=== PATIENT | male | born 1940 | race Caucasian/White ===

== ENCOUNTER 2017-04-15 15:18 | Outpatient (CLI) | payer MEDICARE, OTHER ==
--- OUTSIDE RECORDS SUMMARY | 2017-04-15 15:23 | XMS | Clinical Summary ---
:1940 Author Organization [facility] Address [address] [place] [address] Phone Care Team Providers Name Role Phone Unknown, Phys Primary Care Provider Unavailable Allergies No Known Allergies Current Medications Prescription Sig. Disp. Refills Start Date End Date Status azaTHIOprine (IMURAN) 50 mg Take 50 mg by Active tablet mouth daily. 2 tabs aspirin (ECOTRIN) 81 MG Take 81 mg by Active enteric coated tablet mouth daily. hydroCHLOROthiazide Take 25 mg by Active (HYDRODIURIL) 25 MG tablet mouth daily. balsalazide (COLAZAL) 750 mg Take 2,250 mg by Active capsule mouth 2 (two) times a day. 3 capsules pregabalin (LYRICA) 150 MG Take 150 mg by Active capsule mouth 2 (two) times a day. esomeprazole (NexIUM) 20 MG Take 20 mg by Active capsule mouth daily before breakfast. atorvastatin (LIPITOR) 10 MG Take 10 mg by Active tablet mouth daily. amLODIPine (NORVASC) 10 mg Take 10 mg by Active tablet mouth daily. everolimus (AFINITOR) 10 mg Take 7.5 mg by Active tablet mouth daily. sildenafil (VIAGRA) 50 MG Take 100 mg by Active tablet mouth daily as needed for erectile dysfunction. GLUCOSAMINE/D3/BOSWELLIA Take 1 tablet by Active VICKIE (OSTEO BI-FLEX, mouth daily. 5-LOXIN, ORAL) multivitamins & Take by mouth Active minerals-ferrous gluconate 9 daily. mg iron/15 mL liquid Active Problems Not on file Social History Tobacco Use Types Packs/Day Years Used Date Never Smoker Alcohol Use Drinks/Week oz/Week Comments Yes occassionally Sex Assigned at Date Recorded Not on file Last Filed Vital Signs Vital Sign Reading Time Taken Blood Pressure 123/75 10/23/2016 1:07 PM CDT Pulse 85 10/23/2016 1:07 PM CDT Temperature 36.3 C (97.4 F) 10/23/2016 12:51 PM CDT Respiratory Rate 18 10/23/2016 1:07 PM CDT Oxygen Saturation 96% 10/23/2016 1:07 PM CDT Inhaled Oxygen Concentration - - Weight 88.5 kg (195 lb 2 oz) 10/23/2016 10:40 AM CDT Height 182.9 cm (6') 10/23/2016 10:40 AM CDT Body Mass Index 26.46 10/23/2016 10:40 AM CDT Plan of Treatment Not on file Implants Implanted Type Area Acid Pump Operator Device Expiration Model / Identifier Date Serial / Lot Sleeve Rnd Styl 70 Sceleral Bcklng Najma Strl - [id number] Surgical Right: LABTICIAN 07/19/2021 [id number] / Implanted:Qty: 1 on 10/23/2016 by Elier Shaikh MD Implants; Eye / Expanders; [id number] Extenders; Surgical Wires Strip Opthalmic Imp Styl 42 W/ Wide [employer] Najma 4mm - [id number] Surgical N/ A: N/A LABTICIAN 09/16/2021 [id number] / Implanted:Qty: 1 on 10/23/2016 by Elier Shaikh MD Implants; / Expanders; Extenders; Surgical Wires Results Not on filefrom Last 3 Months Insurance Payer Benefit Plan / Group Subscriber ID Type Phone Address MEDICARE MEDICARE PART A AND B [id number] Medicare [place], [place] FOR LIFE [id number] Home: [id number] [address] [phone] [address]
--- NOTE | 2017-04-16 09:09 | MRI ---
MRI LEFT ANKLE WITHOUT CONTRAST MRI LEFT FOOT WITHOUT CONTRAST: Date: 04/15/17 TECHNIQUE: Multiplanar, multisequence MRI of the left foot and ankle performed without contrast. FINDINGS: Bones: On the coronal T2 fat sat sequences, there is loss of normal fat saturation of the foot due to poor shimming. There is extensive edema within the talar head and neck with some erosive change of the ar ticular surface. There is abnormal edema of the spring ligament. Lisfranc interval is maintained. There is some patchy marrow edema of the second metatarsal head, third metatarsal head, and proximal phalanx base, as well as fourth metatarsal head and proximal phalanx base and fifth metatarsal head . This is felt to be real and not due to poor fat saturation. There is red marrow edema within the c alcaneus. Ligaments: AITFL is bifurcated. PITFL is intact. ATFL is intact. CFL is intact. Superficial and deep deltoid have increased signal. There is some marrow edema at the insertion of t he talar neck of the anterior deep deltoid ligament. Muscles: There is extensive muscular edema with what appears to be possibly early fat atrophy of the extensor and flexor muscle belly above the ankle. There is also extensive edema within the intrinsic muscles of the foot. There is a tear of the dorsal capsule with elongation of the lateral limb of the inferior extensor r etinaculum, which is prominent and thickened, and may be scarred. There is extensive superficial and deep soft tissue edema. There is a small interstitial tear of the medial most margin of the distal most Achilles tendon. IMPRESSION: 1. Overall, findings are suggestive of complex regional pain syndrome. There are areas of patchy ma rrow edema in the hindfoot and forefoot with extensive superficial and soft tissue edema, recent inj ury to the ankle joint capsule, evidence of incomplete avulsive edema of the anterior deep deltoid l igament from the talar neck. Follow-up MRI with and without contrast in 3-6 months is recommended. 2. Extensive edema within the anterior and posterior musculature of the ankle with early atrophy, a lso goes along with complex regional pain syndrome. Recommend correlation with symptomatology for de nervation and neuropathic changes. POS: [facility]
== END 2017-04-15 15:19 | disposition home or self-care (01) ==
LOC: SCSMRI 15:18
PROVIDERS: ATTEND Internal Medicine
DX: M25.572 Pain in left ankle and joints of left foot (principal); R60.0 Localized edema

== ENCOUNTER 2017-04-29 14:09 | Outpatient (CLI) | payer MEDICARE, OTHER ==
--- NOTE | 2017-04-29 16:23 | MRI ---
MRI LUMBAR SPINE NONCONTRAST: DATE: 04-29-17 HISTORY: 76-year-old male with G90.522 complex regional pain syndrome of left lower limb. COMPARISON: No prior MRI or dedicated CTs of the lumbar spine. FINDINGS: Review of the CT of the chest, abdomen, and pelvis of 05-12-13 demonstrates five lumbar type vertebr ae (T12 ribs are bilaterally hypoplastic). The vertebral body heights are maintained. There is mild right-lateral curvature of the lumbar spine, with apex of curvature at approximately L2-3. Because o f this curvature, there are asymmetrically severe left sided degenerative disc changes at L2-3 and L 3-4, with Modic type II endplate changes, endplate irregularities including Schmorl's nodes, severe left sided disc space narrowing, and asymmetrically larger broad based left lateral and far lateral disc/osteophytic complexes chronically encroaching upon the medial aspect of the left psoas muscle a t those two levels. There are similar asymmetrically severe contralateral right sided degenerative d isc changes at L4-5, due to the concavity of the countercurvature. The spinal canal and thecal sac a re generous in caliber throughout all levels. The conus medullaris terminates at T12-L1. As a result of the right sided concavity, there is mild to moderate right neural foraminal stenosis at L4-5. Ot herwise, there is no significant neural foraminal stenosis at any other level. No major spondylolist hesis. There are bilateral degenerative facet changes which are moderate at L3-4, mild to moderate a t L4-5 bilaterally, and asymmetrically severe on the right at L5-S1, and mild on the left at L5-S1. 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 The right kidney is absent. No major pathology of the perivertebral spaces. Left renal upper pole 1. 5 cm cyst has increased in size compared to 05-12-13. No left hydronephrosis. No abdominal aortic an eurysm. Mild to moderate atrophy of posterior paraspinal musculature. IMPRESSION: 1. Lumbar spondylosis, associated with lumbar curvature, asymmetrical multilevel degenerative disc d isease of varying degrees, and multilevel facet osteoarthrosis of varying degrees. 2. No central spinal canal stenosis, and no high grade neural foraminal stenosis at any level. 3. Absence of right kidney. JN R POS: [facility]
== END 2017-04-29 14:10 | disposition home or self-care (01) ==
LOC: SCSMRI 14:09
PROVIDERS: ATTEND Anesthesiology Pain Medicine
DX: G90.522 Complex regional pain syndrome I of left lower limb (principal); M47.816 Spondylosis without myelopathy or radiculopathy, lumbar region; M51.36 Other intervertebral disc degeneration, lumbar region; Z90.5 Acquired absence of kidney
CPT/HCPCS: 72148

== ENCOUNTER 2017-06-10 14:04 | Outpatient (CLI) | payer MEDICARE, OTHER ==
--- NOTE | 2017-06-10 14:51 | ULT ---
LEFT LOWER EXTREMITY VENOUS DUPLEX ULTRASOUND INCLUDING COLOR AND SPECTRAL DOPPLER IMAGING: History: 76-year-old male with left leg pain. FINDINGS: Exam performed from groin to ankle including visualized greater saphenous, common femoral, superficia l femoral, profunda femoral, popliteal, trifurcation and posterior tibial vein regions. There is phas ic flow at all levels with normal compressibility and normal augmentation. No intraluminal thrombus. IMPRESSION: No evidence of deep venous thrombosis. POS: [facility]
== END 2017-06-10 14:05 | disposition home or self-care (01) ==
LOC: SCSULT 14:04
PROVIDERS: ATTEND Internal Medicine
DX: M79.672 Pain in left foot (principal)

== ENCOUNTER 2017-08-06 08:19 | Outpatient (CLI) | payer MEDICARE, OTHER ==
[2017-08-06] MEDS ORDERED: Gadobenate Dimeglumine 529 MG/1 ML (20ML VIAL) ONE (09:00)
--- NOTE | 2017-08-06 09:50 | CT ---
CT CHEST NONCONTRAST CT ABDOMEN AND PELVIS NONCONTRAST: HISTORY: Renal cell carcinoma with metastatic disease. Restaging. COMPARISON: 04/01/17. FINDINGS: The 0.6 cm nodule at the anterior medial aspect of the right upper lobe is similar in appearance to t he prior study. The lobular nodule at the right posterior lung base is now 3.9 x 1.9 cm greatest felipa meters (previously 3.6 x 1.4 cm). The nodule abutting the pleura at the superior segment left lower lobe posteriorly is 0.9 cm (previously 0.8 cm). Degenerative changes of the lumbar spine and lower t horacic hemangioma are stable. Lack of contrast limits evaluation of the soft tissues. The enlarged precarinal lymph node is now 2. 1 cm greatest diameter on the axial images (previously 0.8 cm). The enlarged right anterior hilar ly mph node is now 3.1 x 2.6 cm (previously 2.3 cm). Subcarinal adenopathy is now 3.2 cm (previously 2. 8 cm). Hyperdense stones are apparent within the gallbladder lumen. The right kidney is surgically absent. There is calcification in the arterial structures. Diverticula arise from the colon without adjacen t inflammation. IMPRESSION: 1. Interval enlargement of the mediastinal adenopathy and slight enlargement of some of the parenchy mal lung nodules, as detailed above. 2. Cholelithiasis. 3. Status post right nephrectomy. 4. Atherosclerosis. 5. Diverticulosis. POS: [facility]
--- NOTE | 2017-08-06 18:19 | MRI ---
MRI OF LUMBAR SPINE WITH AND WITHOUT IV CONTRAST 08/06/17 HISTORY: Renal cell carcinoma. Patient had nerve block on lumbar spine. Patient is having left foot numbness a nd swelling for six months. No known injury. COMPARISON: MRI lumbar spine on 04/29/17. FINDINGS: Again noted is the circumscribed round increased T2 and corresponding decreased T1 weighted signal in tensity lesions superior pole left kidney likely related to left renal cyst. There is absence of the right kidney likely related to right nephrectomy. Retroperitoneal structures are otherwise unchanged from prior exam. The conus medullaris is normal in appearance and terminates at the T12-L1 level. Multilevel degenerative changes are again seen, again asymmetrically greater on the left due to scoli otic curvature. Multilevel end plate degenerative changes are seen with loss of intervertebral disc h eight at the L2-3, L3-4, and L4-5 levels. L1-2 level: Central spinal canal and neural foraminal are patent. L2-3 level: There is a broad based disc osteophyte complex with a left paracentral and foraminal disc protrusion also noted on the prior exam. There is mild left sided neural foraminal narrowing at this level, but the right neural foramen is patent. The findings have not progressed from the prior exam. L3-4 level: There is a mild broad based disc osteophyte complex centrally greater on the left probabl y related to the scoliotic curvature. This results in mild left sided neural foraminal narrowing, but the degree of the narrowing is less than at the L2-3 level. The right neural foramen at this level i s patent. There is minimal effacement of the thecal sac anteriorly. L4-5 level: There is a broad based disc osteophyte complex with prominent facet hypertrophic changes. These findings result in mild to moderate right neural foraminal narrowing, but the left neural fora men is patent. There is minimal effacement of the anterior aspect of the thecal sac. L5-S1 level: There is no significant disc bulge or disc herniation. Central spinal canal and neural f oramina are patent at this level. The degree of degenerative changes are overall unchanged from the prior study. No abnormal areas of e nhancement are seen after the administration of intravenous contrast. IMPRESSION: 1. Stable degenerative changes of the lumbar spine. 2. Absence of the right kidney related to right nephrectomy. Small left renal cyst is again seen . 3. No abnormal areas of enhancement are seen after the administration of intravenous contrast. 4. Right convex scoliosis lumbar spine. POS: [facility]
== END 2017-08-06 08:20 | disposition home or self-care (01) ==
LOC: SCSCT 08:19
PROVIDERS: ATTEND Internal Medicine Hematology & Oncology
DX: C78.39 Secondary malignant neoplasm of other respiratory organs (principal); C78.01 Secondary malignant neoplasm of right lung; E53.8 Deficiency of other specified B group vitamins; K80.20 Calculus of gallbladder without cholecystitis without obstruction; I70.90 Unspecified atherosclerosis; K57.90 Diverticulosis of intestine, part unspecified, without perforation or abscess without bleeding; R59.0 Localized enlarged lymph nodes; M47.896 Other spondylosis, lumbar region; N28.1 Cyst of kidney, acquired; M41.9 Scoliosis, unspecified; Z85.528 Personal history of other malignant neoplasm of kidney; Z90.5 Acquired absence of kidney
CPT/HCPCS: 71250; 72158; 74177; A9579

== ENCOUNTER 2017-11-12 09:20 | Outpatient (CLI) | payer MEDICARE, OTHER ==
--- NOTE | 2017-11-12 13:05 | CT ---
CT CHEST NONCONTRAST CT ABDOMEN NONCONTRAST: History Renal cancer. Restaging. COMPARISON: 08/06/17. FINDINGS: Lungs remain hyperinflated with scarring to the right posterior lung base. The noncalcified nodule a t the anterior medial aspect of the right upper lobe is 0.5 cm greatest diameter (previously 0.6 cm) Mass at the right lower lobe is 3.4 x 1.3 cm (previously 3.9 x 1.9 cm). The subpleural nodule at th e left lower lobe is 0.8 cm (previously 0.9 cm). Lack of contrast limits evaluation of the soft tissues. There is calcification within the arterial s tructures. Precarinal lymph node is 1.9 cm (previously 2.1 cm). Right hilar lymph node is 2.6 x 2.4 cm (previously 3.1 x 2.6 cm). Subcarinal lymph node is 2.9 cm depth on the axial image (previously 3.2 cm). Hyperdense stones are apparent within the gallbladder lumen. Multiple liver cysts are again demonstr ated. Involving the posterior aspect of the posterior segment right liver lobe inferiorly is a geogr aphic somewhat irregular-shaped area of low density involving segments 6 and 7. Degenerative changes lumbar spine. The right kidney is surgically absent. No evidence of bowel obst ruction. The pelvis was not imaged. IMPRESSION: 1. Slight interval decrease in size of multiple bilateral pulmonary nodules and mediastinal adenopat hy, as detailed above. 2. New area of geographic low density involving the posterior segment right liver lobe. Distributio n suggests that a venous compromise is the cause. Further evaluation to look for a possible lesion r esulting in the altered venous drainage is required. Please consider dedicated CT liver 3-phase with and without IV contrast for better characterization. 3. Cholelithiasis. Other chronic-type findings are stable. POS: [facility]
== END 2017-11-12 09:21 | disposition home or self-care (01) ==
LOC: SCSCT 09:20
PROVIDERS: ATTEND Internal Medicine Hematology & Oncology
DX: C64.9 Malignant neoplasm of unspecified kidney, except renal pelvis (principal); C34.90 Malignant neoplasm of unspecified part of unspecified bronchus or lung; R91.8 Other nonspecific abnormal finding of lung field; R59.0 Localized enlarged lymph nodes; K80.20 Calculus of gallbladder without cholecystitis without obstruction
CPT/HCPCS: 71250; 74150; 74177

== ENCOUNTER 2018-02-24 09:17 | Outpatient (CLI) | payer MEDICARE, OTHER ==
--- NOTE | 2018-02-24 11:44 | CT ---
CT THORAX NONCONTRAST CT ABDOMEN NONCONTRAST: Date: 02/24/18 HISTORY: 77-year-old male with history of right renal cell carcinoma C64.9 and lung metastasis C78.39. TECHNIQUE: IV contrast not administered. Oral contrast administered. COMPARISON: 11/12/17. FINDINGS: There is an approximately 3.5 x 1.5 x 2 cm right lower lobe pulmonary mass which is elongated in the AP dimension, contiguous with right lower hilum and extending posteriorly. It has not significantly c hanged since 11/12/17. The previously approximately 0.5 x 0.3 x 0.6 cm noncalcified pulmonary nodule at the medial aspect of the anterior segment of right upper lobe currently measures 0.5 x 0.6 x 0.8 cm. It appears minimally larger than before (coronal image 14 of 64, series 602; axial image 26 of 56, series 6). This appare nt difference may or may not be real. The 0.8 x 0.7 x 0.7 cm pulmonary nodule in the left lower lobe close to the posterior pleural surface has not changed (coronal image 53 of 64, series 602; axial image 32 of 56, series 6). Posterior to t hat, there is mild pleural thickening. No new pulmonary nodule is identified. The subcarinal lymphadenopathy measuring approximately 2.9 cm anteroposterior is unchanged. The right anterior hilar lymphadenopathy measuring approximately 2.4 x 2.6 cm, has not significantly changed. The approximately 1.9 cm right precarinal lymph node has not s ignificantly changed. Again noted are the prominent bilateral breast tissues, which have apparently s lightly increased in volume. Calcified gallstones. Several liver cysts are again noted. Previously demonstrated geographic, large area of low attenuation involving the posterior inferior as pect of right lobe of liver, remains, but is more subtle and less hypodense. Its extent has not incre ased significantly. Possibilities include focal fatty liver. No abdominal aortic aneurysm. Absent rig ht kidney with adjacent right retroperitoneal surgical clips. Stable approximately 1.8 cm hypodense l esion at left renal upper pole parenchyma posteriorly, consistent with a cyst. No hydronephrosis of l eft kidney. No left renal calculus. Multiple diverticula in descending colon and proximal sigmoid col on. Pelvis was not included. No small bowel dilation. No retroperitoneal lymphadenopathy. Normal panc reas, within the limitations of a noncontrast scan. No osteolytic lesions seen. IMPRESSION: 1. Metastatic malignant mediastinal lymphadenopathy, unchanged since 11/12/17. 2. Right lower lobe elongated pulmonary mass, unchanged since 11/12/17. 3. Anterior segment right upper lobe pulmonary nodule, uncertain whether stable or minimal growth si nce 11/12/17. Favor stable. 4. Left lower lobe pulmonary nodule, unchanged since 11/12/17. 5. Status post right nephrectomy. 6. Geographic region of mildly low attenuation in right lobe of liver. Perhaps represents focal fatt y liver. No major interval change in extent. 7. Cholelithiasis. 8. No evidence of new metastatic lesions, although lack of IV contrast decreases the sensitivity. 9. Slight worsening of bilateral gynecomastia. POS: [facility]
== END 2018-02-24 09:18 | disposition home or self-care (01) ==
LOC: SCSCT 09:17
PROVIDERS: ATTEND Internal Medicine Hematology & Oncology
DX: C64.9 Malignant neoplasm of unspecified kidney, except renal pelvis (principal); C78.00 Secondary malignant neoplasm of unspecified lung; C77.1 Secondary and unspecified malignant neoplasm of intrathoracic lymph nodes; R91.8 Other nonspecific abnormal finding of lung field; K76.0 Fatty (change of) liver, not elsewhere classified; K80.20 Calculus of gallbladder without cholecystitis without obstruction; N62 Hypertrophy of breast; Z90.5 Acquired absence of kidney
CPT/HCPCS: 71250; 74150

== ENCOUNTER 2018-03-29 05:41 | Day surgery (SDC) | payer MEDICARE, OTHER ==
[2018-03-26 09:40] VITALS: BMI 25.4
[2018-03-29] MEDS ORDERED: Bupivacaine/Epinephrine 0.25% 30 ML VIAL ONE ×2 (06:32→06:43)
[2018-03-29] MEDS ORDERED: Ophthalmic Irrigation Solution 0 ML ONE (06:32)
[2018-03-29] MEDS ORDERED: Neomycin-Polymyxin 1 ML AMP ONE ×2 (06:32→06:33)
[2018-03-29] MEDS ORDERED: CEFAZOLIN/Water 2 GM/20 ML SYRINGE ONE (06:34)
[2018-03-29] MEDS ORDERED: Triple Antibiotic Ointment 30 GM TUBE TOP SCH (06:45)
[2018-03-29] MEDS ORDERED: Fentanyl 100 MCG/2 ML VIAL ONE (07:06)
[2018-03-29] MEDS ORDERED: Promethazine HCl 25 MG/ML VIAL ONE (09:32)
--- NOTE | 2018-03-29 15:50 | OP ---
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 PROCEDURES: 1. Wide excision squamous cell carcinoma of the left cheek and latter-day (5.2 cm including adequate mar gins) (10791). 2. Full thickness skin graft, left cheek and latter-day (18 cm full-thickness skin graft left latter-day (18 cm2) (78217). 3. Wide excision skin cancer, right forearm (1.8 cm including adequate margins) (08601.02). 4. Intermediate closure, right forearm (6 cm) (08287). OPERATIVE FINDINGS: Perineural invasion noted. INDICATION FOR PROCEDURE: The patient is a 77-year-old white male with history of renal cell carcino ma referred to Plastic Surgery by JAK Padron, for evaluation of a wound on his latter-day that has been there for several months. The wound was biopsied as squamous cell carcinoma. The patient has a history of renal cell carcinoma. He is undergoing chemotherapy under Dr. Bay's care. The tumor has aggressively grown in the past 2 weeks. It is considerably larger than it was. That w ill influence the reconstructive choices today. PROCEDURE IN DETAIL: Following induction of adequate anesthesia, the patient was prepped and draped in the usual sterile fashion in the supine position. Attention was first turned to his left cheek an d latter-day lesion. This was widely excised. The cancer was large and went down to and included at rony st one branch of the temporal branch of the facial nerve. Other branches were dissected out safely. Frozen section analysis came back as margins clear. The defect was too large to close primarily. D ue to the aggressive nature of the tumor, I elected for the skin graft reconstruction. A full-thickness skin graft was harvested from the ipsilateral neck end appropriately. It was quilte d into place with interrupted and running 5-0 chromic suture. Attention was turned to the right forearm. The donor defect was closed with interrupted and running 4-0 Monocryl suture. Attention was turned to the right forearm. The lesion was widely excised including adequate margins. Frozen section analysis came back as squamous cell carcinoma with clear margins. The defect was then closed in layers using interrupted and running 4-0 Monocryl suture. All wounds were copiously irrigated and inspected for meticulous hemostasis prior to closure.
--- NOTE | 2018-03-30 17:40 | EKG ---
Test Reason : PREOP Blood Pressure : / mmHG Vent. Rate : 068 BPM Atrial Rate : 068 BPM P-R Int : 220 ms QRS Dur : 102 ms QT Int : 422 ms P-R-T Axes : 093 -31 023 degrees QTc Int : 448 ms Sinus rhythm with 1st degree A-V block Left axis deviation Cannot rule out Anterior infarct (cited on or before 11-NOV-2010) Abnormal ECG When compared with ECG of 16-JUL-2016 13:31, Criteria for Inferior infarct are no longer Present Confirmed by DR. Matteo GALVAN ([id number]) on 03/30/2018 5:40:17 PM Referred By: PREETI Confirmed By:DR. Matteo GALVAN
== END 2018-03-29 11:18 | disposition home or self-care (01) ==
LOC: SDC 05:41
PROVIDERS: ATTEND Plastic Surgery
PROC: 0HR1X73 Replacement of Face Skin with Autologous Tissue Substitute, Full Thickness, External Approach (ICD-10-PCS; principal; 2018-03-29)
PROC: 0HBDXZZ Excision of Right Lower Arm Skin, External Approach (ICD-10-PCS; 2018-03-29)
PROC: 0HB1XZZ Excision of Face Skin, External Approach (ICD-10-PCS; 2018-03-29)
DX: C44.622 Squamous cell carcinoma of skin of right upper limb, including shoulder (principal); C44.329 Squamous cell carcinoma of skin of other parts of face; Z79.82 Long term (current) use of aspirin; Z79.899 Other long term (current) drug therapy
CPT/HCPCS: 88305; 88331; 88332; 93005; 93010; 96374; J2550; J3010

== ENCOUNTER 2018-07-26 09:36 | Outpatient (CLI) | payer MEDICARE, OTHER ==
--- NOTE | 2018-07-26 13:51 | CT ---
CT OF THE THORAX WITHOUT IV CONTRAST: INDICATION: History of lung metastatic disease from renal cell carcinoma. COMPARISON: Prior CT of the chest and abdomen from [facility] dated 02/24/2018. FINDINGS: Large right lower lobe pulmonary nodule measuring 2.1 cm is relatively stable. An 8 mm pulmonary nod ule within the left lower lobe is stable. The bibasilar atelectasis is similar appearing. Pulmonary nodule within the anterior right upper lobe is stable measuring 6.5 mm. No new pulmonary nodule is identified. Malignant lymphadenopathy is relatively stable with the largest lymph node seen within t he subcarinal region measuring 2.4 cm. There is a precarinal lymph node measuring 1.5 cm. There is scattered vascular calcification involving the coronary arteries. There is bilateral male gynecomast ia. There is a cyst within the hepatic dome. There is cholelithiasis within the gallbladder. There is prominent heterogeneity of segment 6 of the right hepatic lobe that is better detailed on the sep arately dictated, concurrently performed CT of the abdomen. There is a 1.9 cm cyst in the superior p ole left kidney. No suspicious osteolytic or osteoblastic lesion identified. IMPRESSION: 1. Stable pulmonary metastatic disease. 2. Stable lymphadenopathy of the mediastinum. 3. Prominent mass-like heterogeneity of the right hepatic lobe. Please see the separately dictated CT of the abdomen and pelvis. POS: [facility]
--- NOTE | 2018-07-26 14:01 | CT ---
CT ABDOMEN WITHOUT CONTRAST: Technique: Multiple contiguous axial images were obtained through the abdomen without IV enhancement. Oral contrast was given. Indications: History of renal neoplasm. Metastasis to the lung. Comparison: CT abdomen 02-24-18 FINDINGS: There are three low density lesions in the left lobe of the liver. One measures 1.3 cm and the other along the fissure measures 2.2 cm. The other is subcentimeter. These lesions are stable from the prior exam and appear most consistent with tiny cystic lesions. Ano ther low density focus in the mid right lobe of the liver peripherally is subcentimeter and unchanged , probably tiny cysts. Nonspecific heterogeneity in the inferior right lobe of the liver is again seen. This was described p reviously as an area of low attenuation in the right lobe of the liver, possibly representing focal f atty liver. It is unchanged in appearance and does not have the appearance of metastasis. Spleen is small and unchanged. The pancreas is unremarkable. Gallbladder is mildly distended and there are at least two calcified gallstones in the neck of the ga llbladder. These were described previously. Small bowel loops unremarkable. Visualized colon unremarkable. Aorta normal caliber. Patient is post right nephrectomy. Adrenal glands appear normal. Left kidney unremarkable and unchang ed in appearance. There is a 2 cm cystic lesion from the superior left kidney which is stable. There is left perinephric stranding which is stable. No evidence of adenopathy. Tiny subcentimeter periaortic lymph nodes are stable. There are tiny subce ntimeter crural lymph nodes in the upper abdomen, stable. IMPRESSION: Abdominal CT findings are stable from the prior study. Hepatic cysts, cholelithiasis, left renal cyst s all again noted. Nonspecific area of low attenuation inferior right lobe of the liver appears uncha nged, possibly representing fatty infiltration as noted previously. POS: [facility]
== END 2018-07-26 09:37 | disposition home or self-care (01) ==
LOC: SCSCT 09:36
PROVIDERS: ATTEND Internal Medicine Hematology & Oncology
DX: C78.01 Secondary malignant neoplasm of right lung (principal); C64.9 Malignant neoplasm of unspecified kidney, except renal pelvis; K76.89 Other specified diseases of liver; K80.20 Calculus of gallbladder without cholecystitis without obstruction; N28.1 Cyst of kidney, acquired; R59.0 Localized enlarged lymph nodes
CPT/HCPCS: 71250; 74150

== ENCOUNTER 2018-10-19 09:20 | Outpatient (CLI) | payer MEDICARE, OTHER ==
--- NOTE | 2018-10-19 11:47 | CT ---
FCT of chest abdomen and pelvis with enteric contrast. IV contrast not administered. COMPARISON: 07/26/2018 CLINICAL HISTORY: Renal cancer with history of lung metastasis. FINDINGS: Redemonstration of multifocal bilateral pulmonary nodules. Dominant nodule within the right lower lobe demonstrates a spiculated morphology and is grossly stable at 2.1 cm. 9 mm posterior left lower lobe pulmonary nodule is grossly stable additional scattered pulmonary parenchymal nodules are also grossly stable. There is mild pleural-based density posteriorly and bilaterally. There is incre asing volume of confluent soft tissue in the subcarinal region indicative of progressive adenopathy. Evidence of cholelithiasis and multifocal hepatic hypodensities, similar in appearance. Prior heterog eneity at the right hepatic lobe is redemonstrated, subtle in appearance and incompletely evaluated b y noncontrast technique. Contrast opacified small bowel is nondilated. There are colonic diverticula. Mild pericardial fluid i s present. Scattered atherosclerotic vascular disease is demonstrated. No acute osseous pathology. IMPRESSION: Confluent soft tissue abnormality of the subcarinal region, slightly progressed in volume, indicating progressive conglomerate metastatic adenopathy. Grossly stable bilateral pulmonary metastatic disease with dominant nodule remaining at approximately 2.1 cm within right lower lobe. Transcribed Date/Time: 10/19/2018 12:04 PM
== END 2018-10-19 09:21 | disposition home or self-care (01) ==
LOC: SCSCT 09:20
PROVIDERS: ATTEND Internal Medicine Hematology & Oncology
DX: C64.9 Malignant neoplasm of unspecified kidney, except renal pelvis (principal); C78.01 Secondary malignant neoplasm of right lung; C78.02 Secondary malignant neoplasm of left lung; R59.0 Localized enlarged lymph nodes; R91.1 Solitary pulmonary nodule
CPT/HCPCS: 71250; 74177

== ENCOUNTER 2018-12-21 09:30 | Outpatient (CLI) | payer MEDICARE, OTHER ==
--- NOTE | 2018-12-21 11:16 | CT ---
NONCONTRAST ENHANCED CT IMAGES OF CHEST AND ABDOMEN: HISTORY: Patient with history of renal cancer, malignant neoplasm of lung. FINDINGS: There is a 1.8 x 3.6 cm right lower lobe pulmonary parenchymal spiculated lesion compatible with righ t lower lobe malignancy. A second left lower lobe pulmonary parenchymal lesion diameter measuring approximately 10 mm also seen. Extensive subcarinal lymphadenopathy seen. There is right-sided hilar lymphadenopathy also seen. Anterior paratracheal lymphadenopathy. Right paratracheal lymphadenopathy seen. The liver contains hypodense areas in the left hepatic lobe compatible with likely cysts; however, me tastatic lesions cannot be completely excluded. Numerous gallstones seen. Hypodense area seen in the left kidney, possibly representing left renal masses or cysts. The patient has had a previous right-sided nephrectomy. No definite evidence of periaortic lymphadenopathy seen. Colonic diverticulosis is present. IMPRESSION: Left lower lobe and right lower lobe lung parenchymal masses. There is right hilar and subcarinal lym phadenopathy. Anterior paratracheal lymphadenopathy is present. Transcribed Date/Time: 12/21/2018 12:03 PM
--- NOTE | 2018-12-22 08:01 | CT ---
NONCONTRAST ENHANCED CT IMAGES OF CHEST AND ABDOMEN: HISTORY: Patient with history of renal cancer, malignant neoplasm of lung. FINDINGS: There is a 1.8 x 3.6 cm right lower lobe pulmonary parenchymal spiculated lesion compatible with righ t lower lobe malignancy. A second left lower lobe pulmonary parenchymal lesion diameter measuring approximately 10 mm also seen. Extensive subcarinal lymphadenopathy seen. There is right-sided hilar lymphadenopathy also seen. Anterior paratracheal lymphadenopathy. Right paratracheal lymphadenopathy seen. The liver contains hypodense areas in the left hepatic lobe compatible with likely cysts; however, me tastatic lesions cannot be completely excluded. Numerous gallstones seen. Hypodense area seen in the left kidney, possibly representing left renal masses or cysts. The patient has had a previous right-sided nephrectomy. No definite evidence of periaortic lymphadenopathy seen. Colonic diverticulosis is present. IMPRESSION: Left lower lobe and right lower lobe lung parenchymal masses. There is right hilar and subcarinal lym phadenopathy. Anterior paratracheal lymphadenopathy is present. Transcribed Date/Time: 12/22/2018 8:00 AM
== END 2018-12-21 09:31 | disposition home or self-care (01) ==
LOC: SCSCT 09:30
PROVIDERS: ATTEND Internal Medicine Hematology & Oncology
DX: C64.9 Malignant neoplasm of unspecified kidney, except renal pelvis (principal); C78.39 Secondary malignant neoplasm of other respiratory organs; R91.8 Other nonspecific abnormal finding of lung field; R59.0 Localized enlarged lymph nodes
CPT/HCPCS: 71250; 74150

== ENCOUNTER 2019-03-22 12:09 | Outpatient (CLI) | payer MEDICARE, OTHER ==
--- NOTE | 2019-03-22 13:18 | MRI ---
MR the lumbar spine without contrast INDICATION: Lumbar radiculopathy COMPARISON: April 29, 2017 MR lumbar spine TECHNIQUE: Multiplanar multisequence MR images were obtained of lumbar spine without IV contrast. FINDINGS: Bone marrow: Bone marrow signal intensity appears within normal limits. Distal spinal cord and conus: Normal. The conus seen to terminate at L1. Visualized retroperitoneum and paraspinal soft tissues: 1.2 cm inferior pole left renal cyst. 9 mm le ft mid posterior left renal cyst. The the right kidney is surgically absent Vertebral levels: L5-S1: Stable grade 1 anterolisthesis. There is moderate facet joint degenerative change and a broad- based disc bulge but no appreciable central canal or neural foraminal narrowing.. L4-5: There is an asymmetric to the right broad-based disc osteophyte complex with moderate facet anival nt degenerative change inducing worsening moderate right neural foraminal narrowing. L3-4: There is a broad-based disc osteophyte complex and facet joint degenerative change inducing mil d bilateral neural foraminal narrowing, left greater than right. L2-3: There is an asymmetric to the left disc bulge inducing mild to moderate left neural foraminal n arrowing. This is stable to the prior exam. L1-L2: No appreciable central canal or neuroforaminal narrowing. T12-L1: No appreciable central canal or neuroforaminal narrowing. IMPRESSION: 1. Worsening moderate right neural foraminal narrowing at L4-5. 2. Stable [id number] left neural foraminal narrowing at L2-3. 3. Stable bilateral neural foraminal narrowing at L3-4. 4. Stable grade 1 anterolisthesis of L5 on S1.
--- NOTE | 2019-03-22 14:58 | MRI ---
MR of the left hip without contrast INDICATION: History of complex regional pain syndrome of the left lower extremity COMPARISON: CT the pelvis dated 02/23/2019; patient also has a history of metastatic renal cell carcino ma in 2011 TECHNIQUE: Multiplanar multisequence MR images were obtained of the left hip without IV contrast. Whole pelvis, T1 and T2-weighted images were obtained. FINDINGS: There is a prominent left and moderate right joint effusion. There is prominent muscular edema involv ing the musculature surrounding the left hip including the left iliopsoas, adductor musculature and abductor musculature. There is prominent muscular atrophy of the left gluteus minimus with moderate t endinosis of the left gluteus minimus tendon. There is moderate degenerative change involving the anterosuperior, superior and posterior superior acetabular labrum with mild to moderate left hip oste oarthrosis. No drainable periarticular fluid collection is evident. There are scattered diverticula involving the colon. No suspicious marrow signal abnormality seen to suggest the presence of osteomye litis or a metastatic lesion. IMPRESSION: 1. Prominent periarticular muscular edema involving the left hip may reflect sequela of acute denerva tion. There is severe muscular atrophy involving the left gluteus minimus tendon with moderate tendinosis. 2. Moderate degenerative arthrosis of the left hip with degenerative fraying of the left acetabular l abrum. 3. Prominent left hip and moderate right hip joint effusion. Transcribed Date/Time: 03/22/2019 3:36 PM
== END 2019-03-22 12:10 | disposition home or self-care (01) ==
LOC: SCSMRI 12:09
PROVIDERS: ATTEND Internal Medicine
DX: G90.522 Complex regional pain syndrome I of left lower limb (principal); M76.02 Gluteal tendinitis, left hip; M62.50 Muscle wasting and atrophy, not elsewhere classified, unspecified site; M16.12 Unilateral primary osteoarthritis, left hip; M25.452 Effusion, left hip
CPT/HCPCS: 72148; 72195

== ENCOUNTER 2019-03-29 09:15 | Outpatient (CLI) | payer MEDICARE, OTHER ==
--- NOTE | 2019-03-29 12:34 | CT ---
CT Chest WO Con 03/29/2019 HISTORY: Renal neoplasm with metastatic lung disease. Follow-up evaluation. COMPARISON: 12/21/2018 Technique: Multiple contiguous axial CT images are obtained through the abdomen and pelvis without IV contrast. Coronal reformats are provided. FINDINGS: This examination is limited for the evaluation of the mediastinum, solid organs, and vascular structu res due to the lack of intravenous contrast. Aorta: Vascular calcifications are seen in the thoracic and abdominal aorta. Vascular calcifications are also seen in the coronary arteries. Lungs: As noted on the prior examination, there is a spiculated lesion in the right lower lobe which is difficult to accurately measure due to adjacent vascular structures. However, this measures approximately 3.9 cm x 2.1 cm with previous measurements of 3.6 cm x 1.8 cm. Pulmonary nodule medial right lower lobe measures 8 mm with previous measurement of 7 mm. A left lower lobe pulmonary nodule measuring 1.3 cm is a again seen and slightly larger in size previously measuring 1 cm. The pu lmonary nodule in the right middle lobe adjacent to the major fissure is again seen with axial dimension of 7 mm and previous dimension of approximately 5 mm. A spiculated pulmonary nodule in the anteromedial right upper lobe is again seen measuring 9 mm with previous measurement of 8 mm. No new pulmonary nodule is seen. Mediastinum: Previously noted mediastinal lymphadenopathy is again seen. Previously noted precarinal lymph node measures 2.6 cm x 2.6 cm with previous measurement of 2 cm x 2 cm. The bulky subcarinal lymphadenopathy is again noted measuring 6.7 cm x 3.6 cm with previous measurements of 6.1 cm x 3 cm. No additional enlarged mediastinal lymph nodes are present. There is an enlarged right hilar lymph node seen measuring 2.8 cm x 2.2 cm which is unchanged in size. Thyroid gland: Grossly normal nonenhanced CT appearance, and the left lobe of thyroid gland is very s mall in size. Chest Wall: Evidence of gynecomastia. Abdomen: Liver: Stable hypodense lesions are again seen in the left hepatic lobe similar in size and appearanc e to prior exam. A tiny hypodense lesion right hepatic lobe is again seen. Gallbladder: Evidence of cholelithiasis. Pancreas: Grossly normal nonenhanced CT appearance. Spleen: Grossly normal nonenhanced CT appearance. Adrenals: Grossly normal nonenhanced CT appearance. Kidneys: Evidence of right nephrectomy. A hypodense lesion is again seen in the superior pole left ki dney measuring 2.1 cm which does demonstrate fluid attenuation and probably represents a cyst. There appears to be additional slightly heterogeneous lesion within the midportion of the left kidney measuring 2.1 cm. This may have been present on the prior exam, but given lack of intravenous contrast, this is difficult to adequately evaluate. Renal sonogram may be helpful for further evaluat ion. Lymph Nodes: No enlarged lymph nodes. Bowel: Colonic diverticulosis is present with moderate amount of retained fecal material seen in the visualized colon. Opacified loops of small bowel are normal in caliber. Peritoneum: No free fluid, free air, or fluid collection. Retroperitoneum: within normal limits. Vessels: Vascular calcifications are seen in the abdominal aorta. Abdominal Wall: within normal limits. Bones: Degenerative changes are seen in the spine. There is a stable circumscribed lucency in the T12 vertebral body unchanged when compared to prior studies dating back to 2010 suggesting a benign finding. Multilevel degenerative changes are seen throughout the spine. Subchondral cystic changes le ft glenoid are again seen and unchanged compared to study in 2013. No additional suspicious lytic or sclerotic osseous lesions are identified. IMPRESSION: 1. Bilateral pulmonary nodules which have mildly increased in size compared to prior exam. No new pul monary nodules are identified. 2. Mediastinal and right hilar lymphadenopathy. The precarinal lymph node is larger in size compared to the prior exam. 3. Suggestion of heterogeneous lesion within the midportion left kidney. This cannot be further evalu ated without IV contrast. A renal sonogram is recommended for further evaluation. 4. Evidence of right nephrectomy. 5. Cholelithiasis. 6. Stable hypodense hepatic lesions statistically likely representing cysts; although, cystic metasta tic lesions would be difficult to entirely exclude. 7. Gynecomastia. Transcribed Date/Time: 03/29/2019 12:33 PM
== END 2019-03-29 09:16 | disposition home or self-care (01) ==
LOC: SCSCT 09:15
PROVIDERS: ATTEND Internal Medicine Hematology & Oncology
DX: C64.9 Malignant neoplasm of unspecified kidney, except renal pelvis (principal); C78.01 Secondary malignant neoplasm of right lung; N62 Hypertrophy of breast; K80.20 Calculus of gallbladder without cholecystitis without obstruction; R59.0 Localized enlarged lymph nodes; R91.8 Other nonspecific abnormal finding of lung field
CPT/HCPCS: 71250; 74150

== ENCOUNTER 2019-03-31 08:17 | Day surgery (SDC) | payer MEDICARE, OTHER ==
[2019-03-30 15:42] VITALS: BMI 23.4
[2019-03-31 08:55] LABS: Hemoglobin 12.9 g/dL (14.0-18.0)
[2019-03-31] MEDS ORDERED: Fentanyl 100 MCG/2 ML VIAL ONE (09:15)
[2019-03-31 09:20] LABS: Anion Gap 16 mmol/L (10-20); BUN (Urea Nitrogen) 25 mg/dL (8.4-25.7); Calc. Creatinine Clearance 85 mL/min (70-130); Calcium 9.9 mg/dL (7.8-10.44); Carbon Dioxide 26 mmol/L (23-31); Chloride 101 mmol/L (98-107); Estimated GFR-MDRD Greater than 90; Glucose 99 mg/dL (83-110); Potassium 4.4 mmol/L (3.5-5.1); Sodium 139 mmol/L (136-145)
[2019-03-31] MEDS ORDERED: Lidocaine 1% w/Epinephrine 1:100K 20 ML VIAL ONE (09:22)
[2019-03-31] MEDS ORDERED: Ondansetron PF 4 MG/2 ML Vial ONE (11:22)
[2019-03-31] MEDS ORDERED: Dexamethasone 20 MG/5 ML VIAL ONE (11:22)
[2019-03-31] MEDS ORDERED: PROPOFOL 200 MG/20 ML VIAL ONE (11:22)
[2019-03-31] MEDS ORDERED: ePHEDrine 50 MG/ML VIAL ONE (11:22)
[2019-03-31] MEDS ORDERED: Lidocaine 1% PF 5 ML VIAL ONE (11:22)
--- NOTE | 2019-03-31 17:11 | EKG ---
Test Reason : PREOP Blood Pressure : / mmHG Vent. Rate : 068 BPM Atrial Rate : 068 BPM P-R Int : 202 ms QRS Dur : 094 ms QT Int : 408 ms P-R-T Axes : 001 -45 018 degrees QTc Int : 433 ms Normal sinus rhythm Left axis deviation Inferior infarct , age undetermined possible anterior NE Abnormal ECG When compared with ECG of 29-MAR-2018 07:03, No significant change was found Confirmed by DR. Percy MAYEN ([id number]) on 03/31/2019 5:11:34 PM Referred By: COSTA Confirmed By:DR. Percy MAYEN
--- NOTE | 2019-04-01 12:31 | OP ---
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 PROCEDURE PERFORMED: 1. Excision of malignant lesion of the left earlobe measuring 3.5 cm with split-thickness skin graft and reconstruction. 2. [place] of split-thickness skin graft from left shoulder. DESCRIPTION OF PROCEDURE: After consent was obtained, the patient was identified, brought to the operative room table, where laryngeal mask was placed under general anesthesia. He was then positioned for surgery. The area of the anticipated surgery was identified and prepped and draped and then infiltrated with 1% lidocaine with 1:100,000 epinephrine. Under microscopic visualization, we then examined the lesion and had delineated 0.5 cm margin around it, followed by excision of this lesion and removal of the subcutaneous tissues. We then sent the margin for histologic evaluation, it was found to be clear of cancer. We then harvested a split-thickness skin graft from the left shoulder with a #10 blade and positioned that over the defect using a rapidly absorbent 6-0 chromic. We then tacked the skin graft into the defect and then fashioned the bolster with Xeroform, cotton ball, and mineral oil and that was kept in place by 2-0 silk sutures in standard fashion. We then closed the harvest defect in multiple layers with Monocryl used for the deep tissues and 5-0 Prolene for the skin. The patient was then awakened and taken to the recovery room in stable condition prior to discharge home. Job ID: [id number]
== END 2019-03-31 13:16 | disposition home or self-care (01) ==
LOC: SDC 08:17
PROVIDERS: ATTEND Specialist
PROC: 0HR1X74 Replacement of Face Skin with Autologous Tissue Substitute, Partial Thickness, External Approach (ICD-10-PCS; principal; 2019-03-31)
DX: C44.229 Squamous cell carcinoma of skin of left ear and external auricular canal (principal); I10 Essential (primary) hypertension; N19 Unspecified kidney failure; E78.00 Pure hypercholesterolemia, unspecified; H90.41 Sensorineural hearing loss, unilateral, right ear, with unrestricted hearing on the contralateral side; Z79.899 Other long term (current) drug therapy
CPT/HCPCS: 36415; 80048; 85014; 85018; 88305; 93005; 93010; J1100; J2001; J2405; J2704; J3010; J3490

== ENCOUNTER 2019-05-19 06:26 | Day surgery (SDC) | payer MEDICARE, OTHER ==
[2019-05-18 15:29] VITALS: BMI 24.4
[2019-05-19 06:58] LABS: Hemoglobin 11.6 g/dL (14.0-18.0)
[2019-05-19 07:17] LABS: Anion Gap 13 mmol/L (10-20); BUN (Urea Nitrogen) 17 mg/dL (8.4-25.7); Calc. Creatinine Clearance 82 mL/min (70-130); Calcium 9.3 mg/dL (7.8-10.44); Carbon Dioxide 27 mmol/L (23-31); Chloride 102 mmol/L (98-107); Estimated GFR-MDRD 83; Glucose 109 mg/dL (83-110); Potassium 4.5 mmol/L (3.5-5.1); Sodium 137 mmol/L (136-145)
[2019-05-19] MEDS ORDERED: Bacitracin Zinc Ointment 30 gm TUBE ONE (07:45)
[2019-05-19] MEDS ORDERED: Lidocaine 1% w/Epinephrine 1:100K 20 ML VIAL ONE ×2 (07:45→11:02)
[2019-05-19] MEDS ORDERED: Fentanyl 100 MCG/2 ML VIAL ONE (07:50)
[2019-05-19] MEDS ORDERED: Lidocaine 1% PF 5 ML VIAL ONE (10:38)
[2019-05-19] MEDS ORDERED: ePHEDrine 50 MG/ML VIAL ONE (10:38)
[2019-05-19] MEDS ORDERED: PROPOFOL 200 MG/20 ML VIAL ONE (10:38)
[2019-05-19] MEDS ORDERED: Dexamethasone 20 MG/5 ML VIAL ONE (10:38)
[2019-05-19] MEDS ORDERED: Ondansetron PF 4 MG/2 ML Vial ONE (10:38)
[2019-05-19] MEDS ORDERED: PHENYLEPHRINE-NS 100 MCG/ML 10 ML SYRINGE ONE (10:38)
--- NOTE | 2019-05-19 16:45 | EKG ---
Test Reason : PREOP Blood Pressure : / mmHG Vent. Rate : 071 BPM Atrial Rate : 071 BPM P-R Int : 216 ms QRS Dur : 096 ms QT Int : 398 ms P-R-T Axes : 035 -42 012 degrees QTc Int : 432 ms Sinus rhythm with sinus arrhythmia with 1st degree A-V block Left axis deviation Inferior infarct , age undetermined Cannot rule out Anterior infarct , age undetermined Abnormal ECG Confirmed by INDU MOBLEY ([id number]) on 05/19/2019 4:45:20 PM Referred By: COSTA Confirmed By:INDU MOBLEY
--- NOTE | 2019-05-20 08:23 | OP ---
DATE OF PROCEDURE: 05/19/2019 PREOPERATIVE DIAGNOSIS: Squamous cell carcinoma of the left inferior earlobe. POSTOPERATIVE DIAGNOSIS: Squamous cell carcinoma of the left inferior earlobe. PROCEDURE PERFORMED: Bilateral excision of malignant earlobe lesions with complex closure, measuring 10 cm. DESCRIPTION OF PROCEDURE: After consent was obtained, the patient was identified and brought to the operating room and placed on the operative table in supine position. Monitored anesthesia was delivered through laryngeal mask and was achieved. The patient was positioned for surgery. The left and right ear were prepped and draped appropriately. In the inferior aspect of the mena, the left ear lobule was excised and a relaxing incision was made into the upper cervical region. We then obtained hemostasis after the area was infiltrated with 1% lidocaine with 1:100,000 epinephrine and removed some additional cartilage, allowing for [id number] closure. The dog ear was then chased and followed into the neck area, which was closed with 5-0 Monocryl for the deep tissues and then 6-0 Prolene for the skin. We then turned our attention to the contralateral side and performed an identical procedure. This way, we had a good aesthetic result with good symmetry. The patient was then awakened and taken to recovery room in stable condition prior to discharge home. Job ID: [id number]
== END 2019-05-19 12:15 | disposition home or self-care (01) ==
LOC: SDC 06:26
PROVIDERS: ATTEND Specialist
PROC: 0HB3XZZ Excision of Left Ear Skin, External Approach (ICD-10-PCS; principal; 2019-05-19)
DX: C44.229 Squamous cell carcinoma of skin of left ear and external auricular canal (principal); D22.22 Melanocytic nevi of left ear and external auricular canal; L57.8 Other skin changes due to chronic exposure to nonionizing radiation; I10 Essential (primary) hypertension; E78.5 Hyperlipidemia, unspecified; Z79.82 Long term (current) use of aspirin; Z79.899 Other long term (current) drug therapy; Z88.8 Allergy status to other drugs, medicaments and biological substances
CPT/HCPCS: 36415; 80048; 85014; 85018; 88305; 88331; 88332; 93005; 93010; J1100; J2001; J2405; J2704; J3010; J3490

== ENCOUNTER 2019-07-29 09:37 | Outpatient (CLI) | payer MEDICARE, OTHER ==
--- NOTE | 2019-07-29 12:10 | CT ---
CT CHEST WITHOUT CONTRAST: CT ABDOMEN WITHOUT CONTRAST: HISTORY: Renal cancer with lung metastasis. COMPARISON: 03/29/2019 FINDINGS: CHEST: Limited evaluation of the mediastinum by the lack of IV contrast. Heart size is upper normal. No significant pericardial fluid. Minimal atherosclerosis of the coronary arteries. There are scatter ed calcified atherosclerotic plaque in a nonaneurysmal thoracic and upper abdominal aorta. There is an enlarged right paratracheal lymph node measuring 2.2 x 2.1 cm, previously measuring 2.6 x 2.5 cm. Enlarged subcarinal lymph node, measuring 2.1 x 5.1 cm, previously measuring 3.6 x 6.7 cm. E nlarged right perihilar lymph node, measuring 2.9 x 2.1 cm, previously measuring 2.2 x 2.8 cm. Trachea and central bronchi are patent. No significant pleural fluid. No pneumothorax. RIGHT LUNG: Redemonstration of an irregular, marginated, solid mass/nodule in the upper lobe, measuri ng 0.5 x 0.6 cm (previously measuring 0.9 x 0.8 cm). Interval decrease in size of a nodule in the mid dle lobe, currently measuring 0.4 x 0.3 cm (previously measuring 0.6 x 0.6 cm). Interval decrease in size of a solid mass in the right lower lobe, measuring 1.8 x 1.3 cm, previously measuring 2.6 x 1.8 cm. This mass is adjacent to the right pulmonary vasculature and the exact borders are difficult to a ssess given the lack of contrast. There is also interval decrease in size of a nodule at the medial a spect of the right lower lobe. LEFT LUNG: Interval decrease in size of a nodule in the left lower lobe, currently measuring 0.5 x 0. 5 cm. Previously this nodule measured 1.2 x approximately 1.0 cm. No new masses are appreciated in the lung parenchyma. ABDOMEN: Limited evaluation of the solid organs by the lack of IV contrast. Stable hepatic hypodensit ies. Grossly no solid organ abnormality. CT evidence of cholelithiasis without evidence of cholecystitis. No gastrohepatic, retrocrural or periportal lymphadenopathy. Findings compatible with a right nephrectomy. Stable left kidney. Stable exophytic cysts in the upper pole of the left kidney, measuring 1.9 cm. There is a slightly convexed, ill defined mass in the mid pole left kidney, measuring approximately 1.9 x 1.8 cm. The possibility of a renal neoplastic proces s cannot be excluded. The visualized alimental canal is unremarkable. There are no lytic or blastic lesions in the osseous structures. IMPRESSION: 1. Evidence of partial response to therapy. Overall decrease in the size of the pulmonary nodules as well as the mediastinal and hilar lymphadenopathy. No new lesions in the chest are appreciated. 2. Findings compatible with right nephrectomy. 3. Cholelithiasis. 4. Multiple hypodensities in the liver, unchanged. Hepatic cysts are favored. 5. Simple cyst in the upper pole of the left kidney. Incompletely evaluated solid mass in the mid micky e of the left kidney. The possibility of a malignant lesion cannot be excluded. Findings are similar to the most recent CT available for comparison. POS: CET
== END 2019-07-29 09:38 | disposition home or self-care (01) ==
LOC: SCSCT 09:37
PROVIDERS: ATTEND Internal Medicine Hematology & Oncology
DX: C78.01 Secondary malignant neoplasm of right lung (principal); C78.39 Secondary malignant neoplasm of other respiratory organs; C64.9 Malignant neoplasm of unspecified kidney, except renal pelvis; E53.8 Deficiency of other specified B group vitamins; R91.8 Other nonspecific abnormal finding of lung field; R59.0 Localized enlarged lymph nodes; K80.20 Calculus of gallbladder without cholecystitis without obstruction; K76.89 Other specified diseases of liver; N28.1 Cyst of kidney, acquired; Z85.528 Personal history of other malignant neoplasm of kidney
CPT/HCPCS: 71250; 74150

== ENCOUNTER 2019-11-14 13:25 | Outpatient (CLI) | payer MEDICARE, OTHER ==
[~2019-11-14 13:25] MED LIST: Magnevist 469MG/ML 20 ML VIAL ONE
--- NOTE | 2019-11-14 15:33 | MRI ---
EXAM: MRI Thoracic Spine W WO Con PROVIDED CLINICAL HISTORY: Metastatic renal cell carcinoma. New onset back pain. COMPARISON: CT thorax on 07/29/2019 FINDINGS: A loculated right pleural fluid collection is partially imaged with mild heterogeneity. There is sugg estion of a few small subcentimeter pleural-based enhancing nodules; although, this is limited due to significant patient motion, but findings are worrisome for metastatic pleural based lesions. Lung bases are not well evaluation on MRI and and CT examination of the thorax with IV contrast would be helpful. Decreased T1 weighted signal intensity with corresponding increased T2-weighted signal intensity lesi ons are seen in the T8, T9, and T12 vertebral bodies which demonstrate enhancement after the administration of intravenous contrast and are suggestive of metastatic lesions. The enhancing metast atic lesions extend into the right pedicle of T8 and T12 vertebral bodies. Minimal disc degenerative changes are seen in the lower thoracic spine. The central spinal canal and neural foramina are patent at all levels. No enhancing intradural or extradural lesion is appreciated. There is incomplete imaging of a increased T2-weighted signal intensity lesion in the superior pole l eft kidney incompletely imaged on this exam. The limited visualized portions of this lesion do not demonstrate enhancement. This lesion was seen on prior CT exam. IMPRESSION: 1. Metastatic lesions involving the T8, T9, and T12 vertebral bodies. 2. Loculated and complex appearing right pleural fluid collection was suggestion of enhancing pleural -based subcentimeter nodules worrisome for pleural-based metastatic disease. However, CT thorax is recommended for further evaluation.
== END 2019-11-14 13:26 | disposition home or self-care (01) ==
LOC: MRI 13:25
PROVIDERS: ATTEND Radiology Radiation Oncology
DX: C64.9 Malignant neoplasm of unspecified kidney, except renal pelvis (principal); C79.51 Secondary malignant neoplasm of bone; M54.9 Dorsalgia, unspecified; M89.9 Disorder of bone, unspecified
CPT/HCPCS: 72157; A9579

== ENCOUNTER 2019-11-19 17:19 | Inpatient (IN) | payer MEDICARE, OTHER ==
--- NOTE | 2019-11-19 17:56 | RAD ---
PORTABLE CHEST ONE VIEW: 11/19/19 at 5:50 p.m. HISTORY: Chills, diaphoresis, weakness, nausea, shortness of breath. Radiation therapy yesterday. Chemo every three weeks. Last chemo was 2.5 weeks ago. Renal cancer with lung metastasis. FINDINGS/IMPRESSION: The heart size is enlarged. There is a moderate sized right pleural effusion with adjacent consolidat ion. No pneumothoraces are seen. A small left pleural effusion cannot be excluded. There are degenera tive changes in the left shoulder joint. POS: RADHAH
[2019-11-19 18:03] LABS: Hemoglobin 8.8 g/dL (14.0-18.0); Mean Corpuscular HGB CONC 30.5 g/dL (32.0-36.0); Mean Corpuscular Hemoglobin 29.4 pg (27.0-31.0); Mean Corpuscular Volume 96.3 fL (78.0-98.0); Platelet Count 358 thou/uL (130-400); RBC Distribution Width 18.2 % (11.5-14.5); White Blood Cell (WBC) Count 7.4 thou/uL (4.8-10.8)
[2019-11-19 18:18] LABS: ALT (SGPT) Less than 7 U/L (8-55); AST (SGOT) 16 U/L (5-34); Albumin 2.5 g/dL (3.4-4.8); Alkaline Phosphatase 79 U/L (40-110); Anion Gap 12 mmol/L (10-20); BUN (Urea Nitrogen) 8 mg/dL (8.4-25.7); Band 2 % (5-11); Bilirubin, Total 0.8 mg/dL (0.2-1.2); Calc. Creatinine Clearance 0 mL/min (70-130); Calcium 8.8 mg/dL (7.8-10.44); Carbon Dioxide 28 mmol/L (23-31); Chloride 102 mmol/L (98-107); Estimated GFR-MDRD Greater than 90; Globulin 2.9 g/dL (2.4-3.5); Glucose 92 mg/dL (83-110); Lymphocytes 2 % (21-51); MDiff Complete? YES; Monocytes 8 % (0-10); Neutrophil 88 % (42-75); Ovalocytes SLIGHT = 2-5 cells (100X) (0-1/hpf); Platelet Morphology Comment Appears Adequate; Polychromasia SLIGHT = 2-3 cells (100X) (0-2/hpf); Potassium 4.4 mmol/L (3.5-5.1); Protein, Total 5.4 g/dL (5.8-8.1); Sodium 138 mmol/L (136-145)
[2019-11-19 20:00] LABS: INR-International Normal Ratio 1.1; Prothrombin Time 13.7 SEC (12.0-14.7)
[2019-11-19] MEDS ORDERED: cefTRIAXone\\ROCEPHIN 2 GM VIAL ONE (20:08)
[2019-11-19] MEDS ORDERED: Vancomycin 1 GM/200 ML BAG ONE (20:23)
--- NOTE | 2019-11-19 21:45 | PDOC.FPRHP ---
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 He reports he woke up feeling this way and reports some chills and diaphoresis as well. SOB has worsened since getting to the ED per patient. He denies CP, orthopnea, cough, fever, ill contacts, dysuria, abd pain, hematuria, dysuria, hematochezia. He reports some nausea which is normal for him and some mild constipation- last BM yesterday morning. He also reports new b/l LE swelling of ankles. He last had radiation yesterday. He last had chemo 2 weeks ago. Of note, he has hx of CHF per chart review, sees Dr. Castle, cardiology. ED Course: VS on admission with O2 sat of 91% RA so was placed on 2L NC. Otherwise VS wnl. He received 1L NS, 1g Vancomycin, 2g Cefepime, and 2g Rocephin in ED. CXR showed large R pleural effusion. - Allergies/Adverse Reactions Allergies Allergy/AdvReac Type Severity Reaction Status Date / Time No Known Allergies Allergy Verified 11/20/19 00:52 - Home Medications Medication Instructions Recorded Confirmed Type Amlodipine Besylate [amLODIPine 10 mg PO QPM 01/13/14 05/18/19 History Besylate] Atorvastatin Calcium 10 mg PO QPM 01/13/14 11/20/19 History Aspirin Chewable 81 mg PO QPM 10/07/16 05/18/19 History Balsalazide Disodium [Colazal] 1,500 mg PO BID 10/07/16 11/20/19 History Esomeprazole Magnesium [NexIUM] 20 mg PO QAM 10/07/16 11/20/19 History Pregabalin [Lyrica] 150 mg PO BID 10/07/16 11/20/19 History Carvedilol 25 mg PO BID 03/26/18 05/18/19 History Cyanocobalamin (Vitamin B-12) 1,000 mcg IM Q28D 03/26/18 11/20/19 History [Cyanocobalamin Injection] Glucosam/Steven-Msm1/C/Giovanni/Bosw 1 each PO QAM 03/26/18 05/18/19 History [Osteo Bi-Flex Caplet] Spironolactone 25 mg PO QAM 03/26/18 11/20/19 History Lactobacillus Acidophilus 1 cap PO DAILY 03/30/19 11/20/19 History [Probiotic] Immunotherapy Chemo 05/18/19 History Diphenoxylate HCl/Atropine 2 tab PO QID PRN 11/20/19 11/20/19 History [Lomotil] Multivit-Min/FA/Lycopen/Lutein 1 each PO DAILY 11/20/19 11/20/19 History [Centrum Silver Tablet] Ondansetron HCl [Zofran] 4 mg PO Q6HR PRN 11/20/19 11/20/19 History azaTHIOprine [Imuran] 100 mg PO BID 11/20/19 11/20/19 History fentaNYL [Duragesic] 25 mcg TD Q3D 11/20/19 11/20/19 History oxyCODONE /Acetaminophen [Percocet 1 tab PO Q4HR PRN 11/20/19 11/20/19 History 5/325] Comments: Meds above not verified by patient- doesn't have current med list, and not available by phone. 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 PCP: Dr. Ramos Oncologist: Dr. Bay, Dr. Garcia Prosthodontist/Educator: Dr. Castle - Review of Systems General: reports: night sweats, fatigue. denies: fever/chills, weight/appetite/ sleep changes Eyes: denies: eye pain, vision changes ENT: denies: nasal congestion, rhinorrhea Respiratory: reports: shortness of breath. denies: cough, congestion, exercise intolerance Cardiovascular: reports: edema. denies: chest pain, palpitation, paroxysmal nocturnal dyspnea Gastrointestinal: reports: nausea, constipation. denies: vomiting, diarrhea, abdominal pain, GI bleeding Genitourinary: denies: incontinence, dysuria, polyuria, discharge Skin: reports: lesions. denies: rashes, jaundice, itching Musculoskeletal: denies: pain, tenderness, stiffness, swelling, arthritis/ arthralgias Neurological: reports: weakness (generalized). denies: numbness, syncope, seizure - Vital signs BP: 107/67 HR: 80 RR: 24 Tmax: 98.8 Pox: 97% on 2L Wt: 79kg - Physical Exam Constitutional: NAD, awake, alert and oriented, well developed HEENT: PERRLA, EOMI, no scleral icterus, MMM, oropharynx clear -HEENT: Large healing scar over the L frontal area of forehead and lateral scalp Neck: supple, trachea midline, no LAD, no JVD Chest: no-tender to palpation, no lesions Heart: RRR, normal S1/S2, no murmurs/rubs/gallops, pulses present -Heart: 1+ LE edema b/l -Lungs: diffuse diminished breath sounds with good air movement in L lung, RLL with no breath sounds. RUL with poor air movement. Abdomen: soft, non-tender, bowel sounds present, no masses/distention Musculoskeletal: normal structure, normal tone Neurological: no focal deficit Skin: capillary refill <2 seconds Heme/Lymphatic: no unusual bruising or bleeding, no petechia Psychiatric: normal mood and affect, good judgment and insight, intact recent and remote memory -Psychiatric: AOx3 FMR H&P: Results - Labs Result Diagrams: 11/20/19 06:07 11/20/19 06:07 Lab results: WBC 7.4 thou/uL (4.8-10.8) 11/19/19 17:40 Hgb 8.8 g/dL (14.0-18.0) L 11/19/19 17:40 Hct 28.9 % (42.0-52.0) L 11/19/19 17:40 MCV 96.3 fL (78.0-98.0) 11/19/19 17:40 Plt Count 358 thou/uL (130-400) 11/19/19 17:40 Band Neuts % (Manual) 2 % (5-11) L 11/19/19 17:40 Sodium 138 mmol/L (136-145) 11/19/19 17:40 Potassium 4.4 mmol/L (3.5-5.1) 11/19/19 17:40 Chloride 102 mmol/L (98-107) 11/19/19 17:40 Carbon Dioxide 28 mmol/L (23-31) 11/19/19 17:40 BUN 8 mg/dL (8.4-25.7) L 11/19/19 17:40 Creatinine 0.63 mg/dL (0.7-1.3) L 11/19/19 17:40 Glucose 92 mg/dL (83-110) 11/19/19 17:40 Lactic Acid 0.7 mmol/L (0.5-2.2) 11/19/19 20:00 Calcium 8.8 mg/dL (7.8-10.44) 11/19/19 17:40 Total Bilirubin 0.8 mg/dL (0.2-1.2) 11/19/19 17:40 AST 16 U/L (5-34) 11/19/19 17:40 ALT Less than 7 U/L (8-55) L 11/19/19 17:40 Alkaline Phosphatase 79 U/L (40-110) 11/19/19 17:40 B-Natriuretic Peptide 368.7 pg/mL (0-100) H 11/19/19 17:45 Serum Total Protein 5.4 g/dL (5.8-8.1) L 11/19/19 17:40 Albumin 2.5 g/dL (3.4-4.8) L 11/19/19 17:40 - EKG Interpretation EKG: NSR, low voltage EKG, no ST changes - Radiology Interpretation Chest x-ray Status: image reviewed by me, report reviewed by me Additional comment: large R pleural effusion. FMR H&P: A/P - Problem List (1) Pleural effusion Current Visit: Yes Status: Acute Code(s): J90 - PLEURAL EFFUSION, NOT ELSEWHERE CLASSIFIED (2) Left shift without diagnosis of specific infection Current Visit: Yes Status: Acute Code(s): D72.89 - OTHER SPECIFIED DISORDERS OF WHITE BLOOD CELLS (3) Immunocompromised patient Current Visit: Yes Status: Acute Code(s): D89.9 - DISORDER INVOLVING THE IMMUNE MECHANISM, UNSPECIFIED (4) Renal cell carcinoma Current Visit: Yes Status: Acute Code(s): C64.9 - MALIGNANT NEOPLASM OF UNSP KIDNEY, EXCEPT RENAL PELVIS (5) Small cell carcinoma Current Visit: Yes Status: Acute Code(s): C80.1 - MALIGNANT (PRIMARY) NEOPLASM, UNSPECIFIED (6) Squamous cell carcinoma Current Visit: Yes Status: Acute Code(s): YOL3257 - (7) Hypoalbuminemia Current Visit: Yes Status: Acute Code(s): E88.09 - OTH DISORDERS OF PLASMA- PROTEIN METABOLISM, NEC (8) Heart failure with reduced ejection fraction Current Visit: Yes Status: Acute Code(s): I50.20 - UNSPECIFIED SYSTOLIC ( CONGESTIVE) HEART FAILURE (9) Elevated brain natriuretic peptide (BNP) level Current Visit: Yes Status: Acute Code(s): R79.89 - OTHER SPECIFIED ABNORMAL FINDINGS OF BLOOD CHEMISTRY (10) Normocytic anemia Current Visit: Yes Status: Chronic Code(s): D64.9 - ANEMIA, UNSPECIFIED (11) Hypertension Current Visit: Yes Status: Chronic Code(s): I10 - ESSENTIAL (PRIMARY) HYPERTENSION (12) Hyperlipidemia Current Visit: Yes Status: Acute Code(s): E78.5 - HYPERLIPIDEMIA, UNSPECIFIED - Plan New Onset Pleural Effusion: -likely malignant with hx of small cell lung carcinoma, less likely infectious or decompensated HF. -consult Pulm in AM -will get echo. -O2 prn -consult Onc in AM. Immunocompromised with L shift: -no elevation in WBC, no fevers, does not meet sepsis criteria, CXR with large effusion likely 2/2 malignancy but cannot r/o infection -ANC >6000, not neutropenic -s/p Vanc, Rocephin, and Cefepime in ED, will continue Vanc and Rocephin for now with immunocompromised status -UA to be thorough -Blood cx pending -procal negative -Flu and COVID pending HFrEF: -BNP elevated above baseline likely 2/2 pleural effusion -last echo EF 45-50% 2016 with severely dilated L atrium -worsened SOB since admission s/p 1L NS in ED, will give IV Lasix x1 dose Stage 2 Sacral Ulcer -wound care consult Hypoalbuminemia: -prealbumin pending -consult field party manager Normocytic Anemia -has been downtrending slowly per record review -Fe studies, B12, Folate ordered -likely 2/2 Chronic disease COVID PUI: -low suspicion -droplet precautions -defer covid labs at this time Renal Cell Carcinoma s/p Nephrectomy and Small Cell Lung Cancer and Squamous Cell Carcinoma: -pt unsure if he is in remission from any of these cancers, currently on chemo and radiation therapy -consult Onc in AM. HTN: -awaiting med rec -restart home meds when available HLD: -awaiting med rec -restart home meds when available Dispo: stable DVT PPx: lovenox GI PPx: none Code Status: DNR Addendum - Attending - Attending Attestation Date/Time: 11/20/19 1208 I personally evaluated the patient and discussed the management with Dr. Streeter. I agree with the History, Examination, Assessment and Plan documented above with any addition or exceptions noted below. Patient here for new R sided pleural effusion, resulting in hypoxia and SHAH. Concern for possible malignant effusion given current malignancy status. Await negative COVID result, then TTE and Pulm consult to evaluate for diagnostic versus therapeutic tap for fluid studies.
[2019-11-19] MEDS ORDERED: Senokot S 8.6-50 MG TAB PO PRN (22:59)
[2019-11-19] MEDS ORDERED: Acetaminophen 325 MG TAB PO PRN (22:59)
[2019-11-19] MEDS ORDERED: Bisacodyl 5 MG TAB PO PRN (22:59)
[2019-11-20] MEDS ORDERED: Labetalol HCl 100 MG/20 ML VIAL SLOW IVP PRN (01:07)
[2019-11-20 01:12] LABS: Bilirubin Negative (Negative); Blood, Urine Negative (Negative); Clarity Clear (Clear); Glucose, Urine (Dipstick) Normal (Negative); Leukocyte Negative Leu/uL (Negative); Nitrite Negative (Negative); Protein, Urine (Dipstick) 20 mg/dL (Neg-Trace); Urobilinogen 3 mg/dL (Less than 2)
[2019-11-20] MEDS ORDERED: Furosemide 20 MG/2 ML VIAL SLOW IVP SCH (01:15)
[2019-11-20 06:14] LABS: #Eosinphils 0.1 thou/uL (0.0-0.7); #Lymphocytes 0.6 thou/uL (1.20-3.40); #Neutrophils 7.6 thou/uL (1.40-6.50); %Basophils 0.4 % (0.0-1.0); %Eosinophils 1.4 % (0.0-10.0); %Lymphocytes 6.2 % (21.0-51.0); %Monocytes 10.3 % (0.0-10.0); %Neutrophils 81.7 % (42.0-75.0); Hemoglobin 10.8 g/dL (14.0-18.0); Mean Corpuscular HGB CONC 31.8 g/dL (32.0-36.0); Mean Corpuscular Hemoglobin 30.2 pg (27.0-31.0); Mean Corpuscular Volume 94.8 fL (78.0-98.0); Mean Platelet Volume 7.1 fL (7.4-10.4); Platelet Count 371 thou/uL (130-400); RBC Distribution Width 18.4 % (11.5-14.5); Red Blood Cell (RBC) Count 3.57 mill/uL (4.70-6.10); White Blood Cell (WBC) Count 9.3 thou/uL (4.8-10.8)
[2019-11-20 06:42] LABS: Iron 24 ug/dL (65-175); Iron Binding Capacity, Total 89 mcg/dL (261-462)
[2019-11-20 06:44] LABS: Anion Gap 17 mmol/L (10-20); BUN (Urea Nitrogen) 9 mg/dL (8.4-25.7); Calc. Creatinine Clearance 109 mL/min (70-130); Calcium 8.6 mg/dL (7.8-10.44); Carbon Dioxide 22 mmol/L (23-31); Chloride 101 mmol/L (98-107); Estimated GFR-MDRD Greater than 90; Glucose 95 mg/dL (83-110); Iron 24 ug/dL (65-175); Iron Binding Capacity, Total 89 mcg/dL (261-462); Potassium 4.1 mmol/L (3.5-5.1); Sodium 136 mmol/L (136-145)
[2019-11-20 07:07] LABS: Ferritin 986.67 ng/mL (22-322)
--- NOTE | 2019-11-20 08:04 | PDOC.FM ---
- Subjective Subjective: Breathing improved. No other concerns. - Objective MAR Reviewed: Yes Vital Signs & Weight: Vital Signs (12 hours) Temp Pulse Resp BP Pulse Ox 11/20/19 02:50 97.9 F 85 22 H 143/78 H 94 L 11/19/19 23:00 98.5 F 78 24 H 146/71 H 95 11/19/19 22:50 95 Weight Weight 79.832 kg I&O: 11/19/19 11/20/19 11/21/19 06:59 06:59 06:59 Intake Total 420 Output Total 750 Balance -330 Result Diagrams: 11/20/19 06:07 11/20/19 06:07 Phys Exam - Physical Examination Constitutional: NAD Neck: full ROM dec lung sounds in right lower base Cardiovascular: RRR, no significant murmur Musculoskeletal: no edema Neurological: non-focal, moves all 4 limbs Psychiatric: A&O x 3 Deviation from normal: wound dressing on left lower paraspinal area, incision on scalp Dx/Plan (1) Acute respiratory failure with hypoxia Code(s): J96.01 - ACUTE RESPIRATORY FAILURE WITH HYPOXIA Status: Acute (2) Heart failure with reduced ejection fraction Code(s): I50.20 - UNSPECIFIED SYSTOLIC (CONGESTIVE) HEART FAILURE Status: Acute (3) Immunocompromised patient Code(s): D89.9 - DISORDER INVOLVING THE IMMUNE MECHANISM, UNSPECIFIED Status: Acute (4) Pleural effusion Code(s): J90 - PLEURAL EFFUSION, NOT ELSEWHERE CLASSIFIED Status: Acute (5) Renal cell carcinoma Code(s): C64.9 - MALIGNANT NEOPLASM OF UNSP KIDNEY, EXCEPT RENAL PELVIS Status : Acute (6) Small cell carcinoma Code(s): C80.1 - MALIGNANT (PRIMARY) NEOPLASM, UNSPECIFIED Status: Acute (7) Squamous cell carcinoma Code(s): CPY3114 - Status: Acute (8) Hypertension Code(s): I10 - ESSENTIAL (PRIMARY) HYPERTENSION Status: Chronic (9) Metastasis to lung Code(s): C78.00 - SECONDARY MALIGNANT NEOPLASM OF UNSPECIFIED LUNG Status: Acute - Plan Plan: 79 yo M with history of multiple malignancies here with acute respiratory failure 2/2 new onset pleural effusion New Onset Pleural Effusion: -likely malignant with hx of small cell lung carcinoma, less likely infectious or decompensated HF. -consult Pulm in AM -Pending repeat TTE -O2 prn -consult pulm, will likely need diagnostic pleurocentesis and eventual chest tube Immunocompromised with L shift: -no elevation in WBC, no fevers, does not meet sepsis criteria, CXR with large effusion likely 2/2 malignancy, procal <0.2 -ANC >7000, not neutropenic -less likely infectious picture will d/c abx -COVID pending HFrEF: -BNP elevated above baseline likely 2/2 pleural effusion -last echo EF 45-50% 2016 with severely dilated L atrium -worsened SOB since admission s/p 1L NS in ED, will give IV Lasix x1 dose Stage 2 Sacral Ulcer -wound care consult Hypoalbuminemia: -prealbumin pending -consult rock lather Normocytic Anemia -likely 2/2 anemia of chronic disease -start iron COVID PUI: -low suspicion -droplet precautions -defer covid labs at this time Renal Cell Carcinoma s/p Nephrectomy and Small Cell Lung Cancer and Squamous Cell Carcinoma: -pt unsure if he is in remission from any of these cancers, currently on chemo and radiation therapy -Notify Dr. Bay on Thursday HTN: -awaiting med rec -restart home meds when available HLD: -awaiting med rec -restart home meds when available Dispo: stable DVT PPx: lovenox GI PPx: none Code Status: DNR Addendum - Attending - Attending Attestation Date/Time: 11/20/19 1221 I personally evaluated the patient and discussed the management with Dr. Klein. I agree with the History, Examination, Assessment and Plan documented above with any addition or exceptions noted below. As per H&P addendum.
[2019-11-20] MEDS: Docusate 100 MG CAP PO SCH ×2 (08:15→20:15)
[2019-11-20] MEDS: Spironolactone 25 MG TAB PO SCH (08:15)
[2019-11-20] MEDS: Enoxaparin Sodium 40 MG/0.4 ML SYRINGE SC SCH (08:15)
[2019-11-20] MEDS ORDERED: Vancomycin 1 GM in Premix Bag 1 BAG IVPB SCH (09:00)
[2019-11-20] MEDS: Ondansetron ODT 4 MG TAB PO PRN (10:54)
[2019-11-20 11:57] LABS: SARS-CoV-2 MS2 Positive; SARS-CoV-2 N Gene Negative; SARS-CoV-2 S Gene Negative; SARS-CoV-2 orf1ab Negative
[2019-11-20] MEDS ORDERED: Non-Formulary Item 1 EACH (Ondansetron Hcl [Zofran] 4 MG) PO PRN (12:01)
[2019-11-20] MEDS ORDERED: oxyCODONE/Acetaminophen 5 mg/325 mg Tablet PO PRN (12:01)
--- NOTE | 2019-11-20 13:29 | PDOC.BPN ---
- Brief Progress Note Updated , Abigail, on status of her and explained our plan for now. She has an appointment with Dr. Bay on 11/21 and would like to further discuss the palliative route in regards to her care. I will consult palliative team to aid in this especially in light of metastatic cancer. It would be helpful to touch base with Dr. Bay as of now I am unsure how extensive the cancer is. also relayed that it is her desire for her and to transition to a halfway together. A case management consult at a later point would be suggested depending on what the patient's hospital course looks like.
[2019-11-20] MEDS ORDERED: cefTRIAXone\\ROCEPHIN 1 GM in Sodium Chloride 0.9% 100 ML IVPB SCH (20:00)
[2019-11-20] MEDS: Aspirin Chewable 81 MG TAB PO SCH (20:15)
[2019-11-20] MEDS: Atorvastatin Calcium 10 MG TAB PO SCH (20:15)
[2019-11-20] MEDS: azaTHIOprine 50 MG TAB PO SCH (20:15)
[2019-11-20] MEDS: Pregabalin 75 MG CAP PO SCH (20:16)
[2019-11-20] MEDS ORDERED: Cyanocobalamin 1000 MCG/ML VIAL IM SCH (21:00)
--- NOTE | 2019-11-21 05:28 | PDOC.FM ---
- Subjective Subjective: States he feels unwell this morning. He is unable to localize any specific problem, just that he doesn't feel well. - Objective MAR Reviewed: Yes Vital Signs & Weight: Vital Signs (12 hours) Temp Pulse Resp BP Pulse Ox 11/21/19 04:00 97.3 F L 87 18 118/65 95 11/21/19 02:35 97.2 F L 88 22 H 130/79 93 L 11/21/19 00:00 92 18 121/72 93 L 11/20/19 20:00 97.2 F L 84 18 114/66 93 L 11/20/19 19:44 93 L Weight Weight 80.014 kg I&O: 11/19/19 11/20/19 11/21/19 06:59 06:59 06:59 Intake Total 420 1210 Output Total 750 300 Balance -330 910 Result Diagrams: 11/21/19 05:35 11/21/19 05:35 Phys Exam - Physical Examination Constitutional: NAD HEENT: PERRLA, moist MMs Neck: supple, full ROM Respiratory: no wheezing Decreased breath sounds on the right Cardiovascular: RRR, no significant murmur Gastrointestinal: soft, non-tender Musculoskeletal: no edema Neurological: non-focal, moves all 4 limbs Psychiatric: normal affect, A&O x 3 Skin: no rash, normal turgor Dx/Plan (1) Acute respiratory failure with hypoxia Code(s): J96.01 - ACUTE RESPIRATORY FAILURE WITH HYPOXIA Status: Acute (2) Elevated brain natriuretic peptide (BNP) level Code(s): R79.89 - OTHER SPECIFIED ABNORMAL FINDINGS OF BLOOD CHEMISTRY Status : Acute (3) Heart failure with reduced ejection fraction Code(s): I50.20 - UNSPECIFIED SYSTOLIC (CONGESTIVE) HEART FAILURE Status: Acute (4) Hyperlipidemia Code(s): E78.5 - HYPERLIPIDEMIA, UNSPECIFIED Status: Acute (5) Immunocompromised patient Code(s): D89.9 - DISORDER INVOLVING THE IMMUNE MECHANISM, UNSPECIFIED Status: Acute (6) Renal cell carcinoma Code(s): C64.9 - MALIGNANT NEOPLASM OF UNSP KIDNEY, EXCEPT RENAL PELVIS Status : Acute (7) Small cell carcinoma Code(s): C80.1 - MALIGNANT (PRIMARY) NEOPLASM, UNSPECIFIED Status: Acute (8) Squamous cell carcinoma Code(s): [id number] - Status: Acute - Plan Plan: Pleural Effusion, new -likely malignant with hx of small cell lung carcinoma, less likely infectious or decompensated HF. -Pulm consulted, awaiting recommendations. Possible diagnostic thoracentesis. Immunocompromised with L shift: -no elevation in WBC, no fevers, does not meet sepsis criteria, CXR with large effusion likely 2/2 malignancy, procal <0.2 -ANC >7000, not neutropenic -less likely infectious picture will d/c abx -COVID negative. HFrEF -BNP elevated above baseline likely 2/2 pleural effusion -last echo EF 45-50% 2016 with severely dilated L atrium -ECHO ordered Stage 2 Sacral Ulcer -wound care consult Hypoalbuminemia: -prealbumin <5 -consult mat weaver Normocytic Anemia -likely 2/2 anemia of chronic disease -start iron COVID, Negative Renal Cell Carcinoma s/p Nephrectomy and Small Cell Lung Cancer and Squamous Cell Carcinoma: -pt unsure if he is in remission from any of these cancers, currently on chemo and radiation therapy -Will discuss with Dr. Bay today HTN: -awaiting med rec -restart home meds when available HLD: -awaiting med rec -restart home meds when available Dispo: stable DVT PPx: lovenox GI PPx: none Code Status: DNR Addendum - Attending - Attending Attestation Date/Time: 11/21/19 0648 I personally evaluated the patient and discussed the management with Dr. Carrington I agree with the History, Examination, Assessment and Plan documented above with any addition or exceptions noted below- Patient feeling better. SOB improved. Afebrile VSS. A/P: 1) Acute respiratory failure secondary to pleural effusion- s/p thoracentesis. Improved. Await cytology. 2) Mild acute exacerbation HFrEF - Continue diuretics.
[2019-11-21 06:09] LABS: Band 1 % (5-11); Hemoglobin 9.3 g/dL (14.0-18.0); Hypochromia SLIGHT = 6-15 cells (100X) (0-5/hpf); Lymphocytes 3 % (21-51); MDiff Complete? YES; Mean Corpuscular HGB CONC 30.2 g/dL (32.0-36.0); Mean Corpuscular Volume 95.9 fL (78.0-98.0); Mean Platelet Volume 6.7 fL (7.4-10.4); Monocytes 9 % (0-10); Neutrophil 87 % (42-75); Platelet Count 383 thou/uL (130-400); Platelet Morphology Comment Appears Adequate; RBC Distribution Width 18.2 % (11.5-14.5); Red Blood Cell (RBC) Count 3.19 mill/uL (4.70-6.10); White Blood Cell (WBC) Count 7.3 thou/uL (4.8-10.8)
[2019-11-21 06:28] LABS: Anion Gap 11 mmol/L (10-20); BUN (Urea Nitrogen) 8 mg/dL (8.4-25.7); Calc. Creatinine Clearance 115 mL/min (70-130); Calcium 8.7 mg/dL (7.8-10.44); Carbon Dioxide 27 mmol/L (23-31); Chloride 102 mmol/L (98-107); Estimated GFR-MDRD Greater than 90; Glucose 99 mg/dL (83-110); Potassium 3.8 mmol/L (3.5-5.1); Sodium 136 mmol/L (136-145)
[2019-11-21] MEDS: Ondansetron ODT 4 MG TAB PO PRN (08:27)
[2019-11-21] MEDS: Pregabalin 75 MG CAP PO SCH ×2 (08:28→21:40)
[2019-11-21] MEDS: Multivitamin W/ Minerals 1 TAB PO SCH (08:29)
[2019-11-21] MEDS: Docusate 100 MG CAP PO SCH ×2 (08:29→21:39)
[2019-11-21] MEDS: Spironolactone 25 MG TAB PO SCH (08:29)
[2019-11-21] MEDS: azaTHIOprine 50 MG TAB PO SCH ×2 (08:29→21:39)
[2019-11-21] MEDS: Enoxaparin Sodium 40 MG/0.4 ML SYRINGE SC SCH (08:30)
[2019-11-21] MEDS: Floranex Packet PO SCH (08:30)
[2019-11-21] MEDS ORDERED: [UNRECOGNIZED DRUG - OTHER] PO SCH (09:00)
--- NOTE | 2019-11-21 10:12 | OP ---
DATE OF PROCEDURE: 11/21/2019 PROCEDURE PERFORMED: Right thoracentesis. PREOPERATIVE DIAGNOSIS: Right pleural effusion. POSTOPERATIVE DIAGNOSIS: Right pleural effusion. ANESTHESIA: 1% lidocaine without epinephrine. DESCRIPTION OF PROCEDURE: Informed consent was obtained from the patient prior to the procedure, explaining the risks of the procedure including bleeding, infection, and external lung puncture. He agreed to proceed without reservation. The patient was placed in the sitting position. The right posterior hemithorax was cleansed with chlorhexidine at the 5th and 6th interspace at the midscapular line. 1% lidocaine was used to anesthetize the entry site. The pleural space was entered with a [id number] catheter. Approximately 2 L of raymon-colored pleural fluid was removed and sent for appropriate studies. The procedure was tolerated well. Job ID: [id number]
[2019-11-21 10:14] LABS: Fluid, pH - Pleural Fld Greater than 7.50 (7.60 - 7.66)
[2019-11-21 10:20] LABS: Fluid, Triglycerides 29 mg/dL (Not Available); Pleural Fluid, Amylase Less than 30 U/L (Not Available); Pleural Fluid, Glucose 110 mg/dL; Pleural Fluid, LDH 67 U/L (Not Available); Pleural Fluid, Protein 2.4 g/dL
--- NOTE | 2019-11-21 10:24 | CON ---
DATE OF CONSULTATION: 11/21/2019 REASON FOR CONSULTATION: Shortness of breath. HISTORY OF PRESENT ILLNESS: This is a 79-year-old who was admitted to the hospital yesterday with shortness of breath and weakness. The shortness of breath has been getting worse. The chest x-ray showed a fairly prominent right-sided pleural effusion. I have been asked to see him in regard to tapping the effusion. PAST MEDICAL HISTORY: 1. He was diagnosed with renal cell carcinoma back in 2010 and had a right nephrectomy in chemo. 2. Small cell lung cancer in 2013, treated with chemo and radiation. 3. Recent squamous cell carcinoma in the left forehead, treated with a fairly large surgical resection and flap. 4. Hyperlipidemia. 5. Hypertension. 6. Congestive heart failure - unknown type. 7. He has also been recently diagnosed with a spinal metastasis. PAST SURGICAL HISTORY: 1. Right nephrectomy. 2. Left forehead cancer resection. FAMILY MEDICAL HISTORY: Unremarkable. SOCIAL HISTORY: Nonsmoker. Does not consume alcohol. Does not use illicit drugs. MEDICATIONS: Prior to admission; 1. Amlodipine. 2. Atorvastatin. 3. Aspirin. 4. Colazal. 5. Nexium. 6. Lyrica. 7. Carvedilol. 8. Vitamin B12. 9. Glucosamine. 10. Spironolactone. 11. Atropine. 12. Multivitamin. 13. Ondansetron. 14. Imuran. 15. Duragesic. 16. Oxycodone. REVIEW OF SYSTEMS: Remarkable for dyspnea and weakness, otherwise negative. PHYSICAL EXAMINATION: VITAL SIGNS: Temperature 97.4, pulse 92, respirations 22, O2 saturation 95% on 3 L, and blood pressure 127/65. GENERAL: The patient is chronically ill-appearing. HEENT: Remarkable for alopecia. He has a surgical flap that is healing well in left frontotemporal region. Oropharynx is clear. NECK: No adenopathy or JVD. LUNGS: He has diminished breath sounds on the right side of his chest, approximately three-fourths the way up. Left side is clear. CARDIAC: S1 and S2 regular without murmur. ABDOMEN: Soft and nontender to palpation. BACK: He has a dressing in his mid spine, which is where he has been receiving radiation. EXTREMITIES: No clubbing, cyanosis, or edema. LABORATORY DATA: White blood cell count 7.3, hematocrit 30.6, and platelet count 383. Sodium 136, potassium 3.8, chloride 102, CO2 of 27, BUN 8, creatinine 0.6, and glucose 99. COVID test was negative. IMAGING DATA: Chest x-ray demonstrates a fairly substantial right pleural effusion, which could be either from heart failure, renal cell carcinoma, or small cell carcinoma. ASSESSMENT: Dyspnea secondary to pleural effusion. PLAN: Diagnostic and therapeutic right thoracentesis. See separate operative note. I would assume he could probably go home this afternoon if his breathing is okay. Job ID: [id number]
[2019-11-21 12:31] LABS: RBC Count-Automated (BF) 1341 /cumm; WBC/Nucleated-Auto (BF) 51 uL
--- NOTE | 2019-11-21 12:35 | RAD ---
PORTABLE CHEST: Date: HISTORY: Patient is status post thoracentesis. COMPARISON: 11/19/2019 exam. FINDINGS: Heart size is enlarged. Bilateral pleural effusions are noted. There has been a definite reduction in the right-sided effusion. No pneumothorax visualized. IMPRESSION: Reduction of right-sided pleural effusion. No signs of pneumothorax. POS: [facility]
[2019-11-21 12:44] LABS: BF Color Yellow; Body Fluid Source Thoracentesis Fluid; Clarity Hazy (Clear); Tube # 3
[2019-11-21 12:55] LABS: BF Segmented Neutrophils 6 %; Cell Count Non Hematic 87 %; Lymphocytes 7 %
--- NOTE | 2019-11-21 20:17 | CON ---
DATE OF CONSULTATION: REASON FOR CONSULT: Renal cell carcinoma. HISTORY OF PRESENT ILLNESS: Mr. 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 He has been on Keytruda for his renal cell carcinoma and underwent a radical resection for his left temporal squamous cell carcinoma in September of this year. He had a PET scan in August at [facility], which showed new onset metastatic bone disease. It was unclear if this was metastatic renal cell or metastatic squamous cell. He had a soft tissue mass at L4 and underwent radiation locally to that area. He had a positive margin on his squamous cell resection and is currently undergoing radiation to this area. He began to have shortness of breath over the weekend and presented to this facility for evaluation. He was noted to have a large right pleural effusion. He underwent thoracentesis this morning and cytology is currently pending. He has undergone multiple treatments for renal cell and has very limited options left. He has been evaluated by an oncologist at [facility], who recommended hospice. He was due to see Dr. Bay today to discuss this further. He was resting comfortably in the bed. No shortness of breath at this time. PAST MEDICAL HISTORY: 1. Metastatic renal cell carcinoma with recent progression on Keytruda. 2. Metastatic squamous cell carcinoma, status post radical resection of the left temporal. 3. Hyperlipidemia. 4. Hypertension. PAST SURGICAL HISTORY: 1. Radical resection of squamous cell carcinoma of the left temporal. 2. Right nephrectomy. ALLERGIES: NO KNOWN DRUG ALLERGIES. HOME MEDICATIONS: 1. Amlodipine. 2. Aspirin. 3. Atorvastatin. 4. Azathioprine. 5. . 6. Lyrica. 7. Nexium. 8. Oxycodone. 9. Protonix. FAMILY HISTORY: Noncontributory. SOCIAL HISTORY: , has 2 children. Lives with his spouse. No alcohol, tobacco, or illicit drug use. REVIEW OF SYSTEMS: A 10-point review of systems is negative except for noted in HPI. PHYSICAL EXAMINATION: VITAL SIGNS: Temperature is 97.4, pulse is 87, respiratory rate 18, BP is 102/ 61. He is 99% on room air. GENERAL: This is a chronically ill-appearing male, in no acute distress. HEENT: Normocephalic. He has a healing incision to his left forehead. NECK: Supple. CV: Regular rate and rhythm. LUNGS: Clear anterior. ABDOMEN: Soft. EXTREMITIES: There is no clubbing or cyanosis. SKIN: No rash. HEMATOLOGICAL: No petechiae or purpura. NEUROLOGICAL: Nonfocal. PERTINENT LABS AND X-RAYS: Current WBCs are 7.3, hemoglobin 9.3, hematocrit 30.6, platelet count 393,000, 87% neutrophils, 1% bands, 3% lymphocytes. PT 13.7, INR is 1.1, PTT 37. Sodium 136, potassium 3.8, chloride 102, CO2 is 27, BUN is 8, creatinine 0.61, calcium is 8.7, bilirubin 0.8, AST 16, ALT is less than 7, alkaline phosphatase is 79. BNP is 368. Serum total protein 5.4, albumin 2.5, globulin 2.9. COVID negative. Echo with EF of 50% to 55%. ASSESSMENT: 1. Metastatic renal cell carcinoma with recent progression on Keytruda. 2. Squamous cell carcinoma of the left forehead with radical resection, currently on radiation. 3. New pleural effusion, likely malignant. DISCUSSION: The patient has had a thoracentesis with removal of 2 L of fluid. We await cytology to confirm whether this is malignant squamous cell or malignant renal cell carcinoma. We did discuss that his treatment options are currently limited based on his prior treatments and declining performance status. The case has been discussed with Dr. Bay, who will discuss further with his . Our recommendation is to involve palliative care with likely transition to hospice once radiation to his forehead is completed. Thank you for the consult. Job ID: [id number] [facility]
[2019-11-21] MEDS: Aspirin Chewable 81 MG TAB PO SCH (21:39)
[2019-11-21] MEDS: Atorvastatin Calcium 10 MG TAB PO SCH (21:39)
--- NOTE | 2019-11-22 06:32 | PDOC.FM ---
- Subjective Subjective: Doing well this morning. Breathing much more comfortably. We discussed end of life goals of care. He states he is considering hospice/ palliative care and living in some form of assisted living. - Objective MAR Reviewed: Yes Vital Signs & Weight: Vital Signs (12 hours) Temp Pulse Resp BP Pulse Ox 11/22/19 05:29 91 L 11/22/19 04:00 98 F 86 18 104/59 L 91 L 11/22/19 00:00 97.4 F L 89 18 104/58 L 97 11/21/19 20:22 96 11/21/19 20:00 97.7 F 91 18 105/61 96 Weight Admit Weight 80.014 kg Weight 77.02 kg I&O: 11/20/19 11/21/19 11/22/19 06:59 06:59 06:59 Intake Total 420 1210 370 Output Total 750 300 Balance -330 910 370 Result Diagrams: 11/22/19 06:08 11/22/19 06:08 Phys Exam - Physical Examination Constitutional: NAD HEENT: PERRLA, moist MMs Neck: supple, full ROM Respiratory: no wheezing, no rales, no rhonchi, clear to auscultation bilateral Cardiovascular: RRR, no significant murmur, no rub Gastrointestinal: soft, non-tender, no distention Musculoskeletal: no edema, pulses present Neurological: non-focal, normal sensation, moves all 4 limbs Psychiatric: normal affect, A&O x 3 Skin: no rash, normal turgor Dx/Plan (1) Acute respiratory failure with hypoxia Code(s): J96.01 - ACUTE RESPIRATORY FAILURE WITH HYPOXIA Status: Acute (2) Elevated brain natriuretic peptide (BNP) level Code(s): R79.89 - OTHER SPECIFIED ABNORMAL FINDINGS OF BLOOD CHEMISTRY Status : Acute (3) Heart failure with reduced ejection fraction Code(s): I50.20 - UNSPECIFIED SYSTOLIC (CONGESTIVE) HEART FAILURE Status: Acute (4) Hyperlipidemia Code(s): E78.5 - HYPERLIPIDEMIA, UNSPECIFIED Status: Acute (5) Immunocompromised patient Code(s): D89.9 - DISORDER INVOLVING THE IMMUNE MECHANISM, UNSPECIFIED Status: Acute (6) Renal cell carcinoma Code(s): C64.9 - MALIGNANT NEOPLASM OF UNSP KIDNEY, EXCEPT RENAL PELVIS Status : Acute (7) Small cell carcinoma Code(s): C80.1 - MALIGNANT (PRIMARY) NEOPLASM, UNSPECIFIED Status: Acute (8) Squamous cell carcinoma Code(s): HIM8579 - Status: Acute - Plan Plan: Pleural Effusion, new -Diagnostic / Therapeutic thoracentesis done 11/21/2019. Removal of 2L of fluid. -Awaiting pathology. Immunocompromised with L shift: -no elevation in WBC, no fevers, does not meet sepsis criteria, CXR with large effusion likely 2/2 malignancy, procal <0.2 -ANC >7000, not neutropenic -less likely infectious picture will d/c abx -COVID negative. HFrEF -ECHO showed EF 50-55% Stage 2 Sacral Ulcer -wound care consult Hypoalbuminemia: -prealbumin <5 -consult program professional Normocytic Anemia -likely 2/2 anemia of chronic disease -start iron COVID, Negative Renal Cell Carcinoma s/p Nephrectomy and Small Cell Lung Cancer and Squamous Cell Carcinoma: -pt unsure if he is in remission from any of these cancers, currently on chemo and radiation therapy -Per documentation and conversation with oncology team, patient has significant metastasis. -Hospice / palliative care recommended. Will discuss today with patient and his . Per PC note yesterday, she is looking at placement. HTN: -awaiting med rec -restart home meds when available HLD: -awaiting med rec -restart home meds when available Dispo: stable DVT PPx: lovenox GI PPx: none Code Status: DNR Addendum - Attending - Attending Attestation Date/Time: 11/22/19 8132 I personally evaluated the patient and discussed the management with Dr. Carrington I agree with the History, Examination, Assessment and Plan documented above with any addition or exceptions noted below - Patient denie any complaints. Breathing much improved. Afebrile VSS. A/P: 1) Pleural effusion- cytology pending. Appears to be transudate. Evaluate for home O2 (walking test). 2) Renal cell carcinoma and Squamous cell carcinoma - discussion with patient and regarding goals of care with palliative later today.
[2019-11-22 06:47] LABS: Band 1 % (5-11); Eosinophils 1 % (0-10); Hemoglobin 9.2 g/dL (14.0-18.0); Lymphocytes 7 % (21-51); MDiff Complete? YES; Mean Corpuscular HGB CONC 30.3 g/dL (32.0-36.0); Mean Corpuscular Hemoglobin 29.5 pg (27.0-31.0); Mean Corpuscular Volume 97.5 fL (78.0-98.0); Monocytes 11 % (0-10); Neutrophil 80 % (42-75); Nucleated RBC 1 % (0); Platelet Count 403 thou/uL (130-400); Platelet Morphology Comment Appears Increased; RBC Distribution Width 18.1 % (11.5-14.5); Red Blood Cell (RBC) Count 3.13 mill/uL (4.70-6.10); White Blood Cell (WBC) Count 6.3 thou/uL (4.8-10.8)
[2019-11-22 06:49] LABS: Anion Gap 12 mmol/L (10-20); BUN (Urea Nitrogen) 7 mg/dL (8.4-25.7); Calc. Creatinine Clearance 110 mL/min (70-130); Calcium 8.8 mg/dL (7.8-10.44); Carbon Dioxide 29 mmol/L (23-31); Chloride 100 mmol/L (98-107); Estimated GFR-MDRD Greater than 90; Glucose 93 mg/dL (83-110); Potassium 3.9 mmol/L (3.5-5.1); Sodium 137 mmol/L (136-145)
[2019-11-22] MEDS: Pregabalin 75 MG CAP PO SCH ×2 (07:40→20:40)
[2019-11-22] MEDS: azaTHIOprine 50 MG TAB PO SCH ×2 (07:40→20:39)
[2019-11-22] MEDS: Floranex Packet PO SCH (07:40)
[2019-11-22] MEDS: Docusate 100 MG CAP PO SCH ×2 (07:40→20:40)
[2019-11-22] MEDS: Enoxaparin Sodium 40 MG/0.4 ML SYRINGE SC SCH (07:41)
[2019-11-22] MEDS: Multivitamin W/ Minerals 1 TAB PO SCH (07:41)
[2019-11-22] MEDS: Spironolactone 25 MG TAB PO SCH (07:41)
--- NOTE | 2019-11-22 08:59 | PDOC.MOPN ---
Interval History: breathing better, pain stable, no cough - Vital Signs Vital Signs: Vital Signs (12 hours) Temp Pulse Resp BP Pulse Ox 11/22/19 07:45 98.1 F 99 18 122/80 94 L 11/22/19 05:29 91 L 11/22/19 04:00 98 F 86 18 104/59 L 91 L 11/22/19 00:00 97.4 F L 89 18 104/58 L 97 Weight Admit Weight 176 lb 6.4 oz Weight 169 lb 12.8 oz - Physical Exam General: Alert, Cooperative, No acute distress HEENT: Other (healing surgical scar) Lungs: Clear to auscultation Cardiovascular: Regular rate Abdomen: Normal bowel sounds Extremities: No clubbing - Labs Result Diagrams: 11/22/19 06:08 11/22/19 06:08 Lab results: Laboratory Results - last 24 hr 11/22/19 06:08: Lactate Dehydrogenase 182 11/22/19 06:08: WBC 6.3, RBC 3.13 L, Hgb 9.2 L, Hct 30.5 L, MCV 97.5, MCH 29.5, MCHC 30.3 L, RDW 18.1 H, Plt Count 403 H, MPV 7.0 L, Neutrophils % (Manual) 80 H , Band Neuts % (Manual) 1 L, Lymphocytes % (Manual) 7 L, Monocytes % (Manual) 11 H, Eosinophils % (Manual) 1, Nucleated RBCs # (Man) 1 H, Plt Morphology Comment Appears Increased H 11/22/19 06:08: Sodium 137, Potassium 3.9, Chloride 100, Carbon Dioxide 29, Anion Gap 12, BUN 7 L, Creatinine 0.61 L, Estimated GFR (MDRD) Greater than 90 , Glucose 93, Calcium 8.8 11/21/19 10:15: Pleural pH 7.6 11/21/19 10:00: Pleural pH (Resp) Greater than 7.50 11/21/19 09:44: Fluid Source Thoracentesis Fluid, Fluid Tube Number 3, Fluid Color Yellow, Fluid Clarity Hazy H, Fluid WBC 51, Fluid RBC 1341, Fluid Seg Neutrophil % 6, Fluid Lymphocytes % 7, Fluid Diff Path Review , Non- Hematological % 87, Fluid Comment Note: 11/21/19 09:44: Fluid Triglycerides 29, Pleural Total Protein 2.4, Pleural LDH 67, Pleural Glucose 110, Pleural Amylase Less than 30 - Pathology Pathology: pending on pleural fluid A/P - Problem (1) Pleural effusion Current Visit: Yes Code(s): J90 - PLEURAL EFFUSION, NOT ELSEWHERE CLASSIFIED Status: Acute (2) Renal cell carcinoma Current Visit: Yes Code(s): C64.9 - MALIGNANT NEOPLASM OF UNSP KIDNEY, EXCEPT RENAL PELVIS Status: Acute (3) Squamous cell carcinoma Current Visit: Yes Code(s): [id number] - Status: Acute (4) Normocytic anemia Current Visit: Yes Code(s): D64.9 - ANEMIA, UNSPECIFIED Status: Chronic (5) Hyponatremia Current Visit: No Code(s): E87.1 - HYPO-OSMOLALITY AND HYPONATREMIA Status: Acute (6) Metastasis to lung Current Visit: No Code(s): C78.00 - SECONDARY MALIGNANT NEOPLASM OF UNSPECIFIED LUNG Status: Acute (7) Post-op pain Current Visit: No Code(s): G89.18 - OTHER ACUTE POSTPROCEDURAL PAIN Status: Acute - Plan Plan: we had a long discussion about his prognosis and he understands it is poor. we discussed further treatment for RCC with dolores but he understands his QOL will likely not improve. i do think we should wait for the path on fluid, if it is squamous cell carcinoma he definitely will not benefit from further treatment and needs to consider hospice. we did discuss hospice at length, he is dominguez he could go home with hospice care and i want him to consider this. i also discussed this with his . all questions answered. i think he should go home with hospice or to a [facility] bed today or tomorrow.
--- NOTE | 2019-11-22 09:40 | PRG ---
DATE OF SERVICE: 11/22/2019 SUBJECTIVE: He feels better, breathing okay. PHYSICAL EXAMINATION: VITAL SIGNS: Temperature 98.1, pulse 99, respirations 18, O2 saturation 94% on 3 L, blood pressure 122/80. HEENT: Remarkable for alopecia and postoperative changes from the skin cancer surgery. NECK: No JVD. LUNGS: Clear on the left. Decreased breath sounds, right base. CARDIAC: S1, S2. Regular. ABDOMEN: Soft. EXTREMITIES: No edema. LABORATORY DATA: The pleural fluid demonstrate total protein 2.4, LDH is 67, glucose 110 with a differential count mostly histiocytes. The cytology is pending. ASSESSMENT: 1. Metastatic renal cell carcinoma along with history of small cell lung cancer. 2. Right-sided pleural effusion that actually looks transudative on numbers. Plan, await cytology. 3. If the cytology is negative, then he will need to be placed on a fairly aggressive diuretic regimen. He would also need a salt restrict. 4. We would recommend home oxygen evaluation. 5. Further disposition to follow based on cytology results. Job ID: [id number]
[2019-11-22] MEDS: Aspirin Chewable 81 MG TAB PO SCH (20:41)
[2019-11-22] MEDS: Atorvastatin Calcium 10 MG TAB PO SCH (20:41)
[2019-11-23 06:11] LABS: Anion Gap 12 mmol/L (10-20); BUN (Urea Nitrogen) 6 mg/dL (8.4-25.7); Calc. Creatinine Clearance 120 mL/min (70-130); Calcium 8.2 mg/dL (7.8-10.44); Carbon Dioxide 26 mmol/L (23-31); Chloride 100 mmol/L (98-107); Estimated GFR-MDRD Greater than 90; Glucose 95 mg/dL (83-110); Potassium 3.8 mmol/L (3.5-5.1); Sodium 134 mmol/L (136-145)
[2019-11-23 06:15] LABS: Hemoglobin 8.4 g/dL (14.0-18.0); Hypochromia SLIGHT = 6-15 cells (100X) (0-5/hpf); Lymphocytes 2 % (21-51); MDiff Complete? YES; Mean Corpuscular HGB CONC 30.3 g/dL (32.0-36.0); Mean Corpuscular Hemoglobin 29.6 pg (27.0-31.0); Mean Corpuscular Volume 97.7 fL (78.0-98.0); Mean Platelet Volume 7.1 fL (7.4-10.4); Monocytes 6 % (0-10); Neutrophil 92 % (42-75); Platelet Count 379 thou/uL (130-400); Platelet Morphology Comment Appears Adequate; RBC Distribution Width 17.9 % (11.5-14.5); Red Blood Cell (RBC) Count 2.84 mill/uL (4.70-6.10); White Blood Cell (WBC) Count 5.9 thou/uL (4.8-10.8)
--- NOTE | 2019-11-23 07:10 | PDOC.FM ---
- Subjective Subjective: Doing well this morning. States he will be going down for radiation this morning prior to d/c. - Objective MAR Reviewed: Yes Vital Signs & Weight: Vital Signs (12 hours) Temp Pulse Resp BP Pulse Ox 11/23/19 04:00 97.9 F 76 18 104/62 96 11/23/19 02:57 95 11/23/19 00:00 97.9 F 98 20 105/66 95 11/22/19 20:00 97.7 F 96 20 99/63 95 Weight Admit Weight 80.014 kg Weight 76.657 kg I&O: 11/22/19 11/23/19 11/24/19 06:59 06:59 06:59 Intake Total 370 300 Balance 370 300 Result Diagrams: 11/23/19 05:22 11/23/19 05:22 Phys Exam - Physical Examination Constitutional: NAD HEENT: PERRLA, moist MMs Neck: supple Respiratory: no wheezing, no rales, no rhonchi, clear to auscultation bilateral Cardiovascular: RRR, no significant murmur Gastrointestinal: soft, non-tender Musculoskeletal: no edema, pulses present Neurological: non-focal, moves all 4 limbs Psychiatric: normal affect, A&O x 3 Skin: no rash, normal turgor Dx/Plan (1) Acute respiratory failure with hypoxia Code(s): J96.01 - ACUTE RESPIRATORY FAILURE WITH HYPOXIA Status: Acute (2) Elevated brain natriuretic peptide (BNP) level Code(s): R79.89 - OTHER SPECIFIED ABNORMAL FINDINGS OF BLOOD CHEMISTRY Status : Acute (3) Heart failure with reduced ejection fraction Code(s): I50.20 - UNSPECIFIED SYSTOLIC (CONGESTIVE) HEART FAILURE Status: Acute (4) Hyperlipidemia Code(s): E78.5 - HYPERLIPIDEMIA, UNSPECIFIED Status: Acute (5) Immunocompromised patient Code(s): D89.9 - DISORDER INVOLVING THE IMMUNE MECHANISM, UNSPECIFIED Status: Acute (6) Renal cell carcinoma Code(s): C64.9 - MALIGNANT NEOPLASM OF UNSP KIDNEY, EXCEPT RENAL PELVIS Status : Acute (7) Small cell carcinoma Code(s): C80.1 - MALIGNANT (PRIMARY) NEOPLASM, UNSPECIFIED Status: Acute (8) Squamous cell carcinoma Code(s): [id number] - Status: Acute - Plan Plan: Pleural Effusion, new -Diagnostic / Therapeutic thoracentesis done 11/21/2019. Removal of 2L of fluid. -Awaiting pathology. HFrEF -ECHO showed EF 50-55% Stage 2 Sacral Ulcer -wound care consult Hypoalbuminemia: -prealbumin <5 -consult director of pediatric rehabilitation Normocytic Anemia -likely 2/2 anemia of chronic disease -start iron COVID, Negative Renal Cell Carcinoma s/p Nephrectomy and Small Cell Lung Cancer and Squamous Cell Carcinoma: -Onc and Palliative have met with patient. He is planning to go home today with home health in order to complete radiation treatment. -Then he plans to enter hospice care. HTN: -restart home meds HLD: -restart home meds Dispo: stable DVT PPx: lovenox GI PPx: none Code Status: DNR Addendum - Attending - Attending Attestation Date/Time: 11/23/19 7903 I personally evaluated the patient and discussed the management with Dr. Roe I agree with the History, Examination, Assessment and Plan documented above with any addition or exceptions noted below - Patient without complaints. No SOB. Afebrile VSS. A/P: 1) Pleural effusion- Improved. Awaiting pathology report. 2) Renal cell carcinoma and squamous cell cancer - continue XRT. Possible d/c home later today.
--- NOTE | 2019-11-23 09:47 | PRG ---
DATE OF SERVICE: 11/23/2019 SUBJECTIVE: The patient is doing reasonably well, says his breathing remains comfortable. OBJECTIVE: VITAL SIGNS: Temperature 97.5, pulse 88, respirations 20, O2 saturations 93% on 2 L, blood pressure 100/61. HEENT: Unremarkable. NECK: No JVD. LUNGS: Clear anteriorly, slightly diminished in the right base. CARDIAC: S1 and S2. Regular. ABDOMEN: Soft. EXTREMITIES: No edema. LABORATORY DATA: White blood cell count 5.9, hematocrit 27.8, and platelet count 379. Sodium 134, potassium 3.8, BUN 6, creatinine 0.6, and glucose 95. Pleural fluid cytology is pending. ASSESSMENT: 1. Large right pleural effusion. 2. Lung cancer, renal cell carcinoma, squamous cell carcinoma of the skin. PLAN: If the cytology is positive, then I would recommend PleurX catheter placement. If negative, then I would recommend treatment with diuretics as needed. Job ID: [id number]
[2019-11-23] MEDS: Enoxaparin Sodium 40 MG/0.4 ML SYRINGE SC SCH (09:48)
[2019-11-23] MEDS: Pregabalin 75 MG CAP PO SCH (09:49)
[2019-11-23] MEDS: Docusate 100 MG CAP PO SCH (09:49)
[2019-11-23] MEDS: Floranex Packet PO SCH (09:49)
[2019-11-23] MEDS: azaTHIOprine 50 MG TAB PO SCH (09:50)
[2019-11-23] MEDS: Multivitamin W/ Minerals 1 TAB PO SCH (09:51)
[2019-11-23] MEDS: Spironolactone 25 MG TAB PO SCH (09:51)
--- NOTE | 2019-11-23 12:02 | PDOC.MOPN ---
Interval History: no complaints. Wearing O2 - Vital Signs Vital Signs: Vital Signs (12 hours) Temp Pulse Resp BP Pulse Ox 11/23/19 09:45 93 L 11/23/19 08:00 97.5 F L 88 20 100/61 93 L 11/23/19 04:00 97.9 F 76 18 104/62 96 11/23/19 02:57 95 Weight Admit Weight 176 lb 6.4 oz Weight 169 lb - Physical Exam General: Alert, Oriented x3, No acute distress HEENT: Atraumatic, PERRLA, EOMI, Mucous membr. moist/pink Lungs: Other Cardiovascular: Regular rate, Normal S1, Normal S2, No murmurs, Gallops, Rubs Abdomen: Normal bowel sounds, Soft, No tenderness, No hepatospenomegaly, No masses Neurological: Normal speech - Labs Result Diagrams: 11/23/19 05:22 11/23/19 05:22 Lab results: Laboratory Results - last 24 hr 11/23/19 05:22: WBC 5.9, RBC 2.84 L, Hgb 8.4 L, Hct 27.8 L, MCV 97.7, MCH 29.6, MCHC 30.3 L, RDW 17.9 H, Plt Count 379, MPV 7.1 L, Neutrophils % (Manual) 92 H, Lymphocytes % (Manual) 2 L, Monocytes % (Manual) 6, Hypochromia SLIGHT = 6-15 cells, Plt Morphology Comment Appears Adequate 11/23/19 05:22: Sodium 134 L, Potassium 3.8, Chloride 100, Carbon Dioxide 26, Anion Gap 12, BUN 6 L, Creatinine 0.56 L, Estimated GFR (MDRD) Greater than 90 , Glucose 95, Calcium 8.2 Status: lab reviewed by me A/P - Problem (1) Pleural effusion Current Visit: Yes Code(s): J90 - PLEURAL EFFUSION, NOT ELSEWHERE CLASSIFIED Status: Acute (2) Renal cell carcinoma Current Visit: Yes Code(s): C64.9 - MALIGNANT NEOPLASM OF UNSP KIDNEY, EXCEPT RENAL PELVIS Status: Acute (3) Squamous cell carcinoma Current Visit: Yes Code(s): [id number] - Status: Acute - Plan Plan: Radiation given this am,continue outpatient Cytology on pleural fluid negative OK to dc home
[2019-11-23 13:11] VITALS: BMI 22.9
--- NOTE | 2019-11-23 17:12 | PDOC.EVN ---
Event Note - Event Note Event Note: Patient failed walking O2 test. 82% with exertion. Will be sending home with orders for home oxygen therapy. hypoxia likely due to CHF. Effusion was transudative and not malignant. -Frank TIERNEY
[2019-11-23 19:34] VITALS: BP 102/71; TEMP 97.2
--- NOTE | 2019-11-24 14:30 | DIS ---
DATE OF ADMISSION: 11/19/2019 DATE OF DISCHARGE: 11/23/2019 RESIDENT: Kristie Carrington MD. ADMITTING ATTENDING: iMlad Ag MD. DISCHARGE ATTENDING: Ibis Garcia MD CONSULTS: Oncology, Dr. Meme Bay. Pulmonology, Dr. Trey Limon. PRIMARY DIAGNOSIS: New-onset right pleural effusion. SECONDARY DIAGNOSES: Heart failure due to reduced ejection fraction; stage II sacral ulcer; hypoalbuminemia; normocytic anemia; COVID negative, renal cell carcinoma, status post nephrectomy, with small cell lung cancer and squamous cell cancer; hypertension; and hyperlipidemia. DISCHARGE MEDICATIONS: 1. Spironolactone. 2. Lyrica. 3. [place]. 4. Ondansetron. 5. Multivitamin. 6. Probiotic. 7. Fentanyl patch. 8. Nexium. 9. Lomotil. 10. Vitamin B12. 11. Coreg. 12. Colazal. 13. Imuran. 14. Atorvastatin. 15. Aspirin. 16. Amlodipine. Discontinued medications, none. HISTORY OF PRESENT ILLNESS/HOSPITAL COURSE: Mr. Oliveros is a 79-year-old male with a past medical history of renal cell carcinoma diagnosed in 2010, status post right nephrectomy and chemo. He presents for increasing shortness of breath and generalized weakness. On chest x-ray, he was found to have a large right pleural effusion. Pulmonology was consulted, and a thoracentesis was performed on 11/21/2019, which showed transudative pleural fluid. Oncology was consulted, and the patient's clinical course was reviewed, and it was recommended that he consider hospice, which he was agreeable to and was discharged with a decision to utilize home health for 7 days to complete radiation therapy and to then start hospice thereafter. DISPOSITION: Guarded. DISCHARGE INSTRUCTIONS: Location: Home. Diet: Regular. Activity: Ad hu. Followup: Oncology. Job ID: [id number] MTDD
--- NOTE | 2019-11-27 15:23 | EKG ---
Test Reason : STAT Blood Pressure : / mmHG Vent. Rate : 094 BPM Atrial Rate : 094 BPM P-R Int : 168 ms QRS Dur : 094 ms QT Int : 380 ms P-R-T Axes : 003 -36 029 degrees QTc Int : 475 ms Sinus rhythm with marked sinus arrhythmia with occasional Premature ventricular complexes Left axis deviation Low voltage QRS Cannot rule out Anterior infarct (cited on or before 11-NOV-2010) Abnormal ECG When compared with ECG of 19-MAY-2019 07:19, Premature ventricular complexes are now Present [place] interval has decreased Serial changes of Anterior infarct Present Confirmed by LILIANA ALARCON (2) on 11/27/2019 3:22:59 PM Referred By: MAHENDRA ALMANZA Confirmed By:LILIANA ALARCON
== END 2019-11-23 17:39 | disposition home health service (06) | DRG 291 ==
LOC: ERS 17:19 → T4-A 21:12
PROVIDERS: ADMIT Family Medicine; ATTEND Family Medicine
PROC: 0W993ZZ Drainage of Right Pleural Cavity, Percutaneous Approach (ICD-10-PCS; principal; 2019-11-21)
PROC: 8E0ZXY6 Isolation (ICD-10-PCS; 2019-11-21)
DX: I11.0 Hypertensive heart disease with heart failure (principal); Z66 Do not resuscitate; Z20.828 Contact with and (suspected) exposure to other viral communicable diseases; J96.01 Acute respiratory failure with hypoxia; C79.51 Secondary malignant neoplasm of bone; J91.8 Pleural effusion in other conditions classified elsewhere; C79.2 Secondary malignant neoplasm of skin; C64.1 Malignant neoplasm of right kidney, except renal pelvis; Z79.899 Other long term (current) drug therapy; I50.23 Acute on chronic systolic (congestive) heart failure; L89.152 Pressure ulcer of sacral region, stage 2; E88.09 Other disorders of plasma-protein metabolism, not elsewhere classified; D64.9 Anemia, unspecified; E78.5 Hyperlipidemia, unspecified; D63.8 Anemia in other chronic diseases classified elsewhere; D89.9 Disorder involving the immune mechanism, unspecified; Z90.5 Acquired absence of kidney; Z85.118 Personal history of other malignant neoplasm of bronchus and lung
CPT/HCPCS: 36415; 71045; 77014; 77280; 77290; 77306; 77332; 77336; 77412; 80048; 80053; 81003; 82150; 82248; 82607; 82728; 82746; 82945; 83540; 83550; 83605; 83615; 83880; 84100; 84134; 84145; 84157; 84436; 84443; 84478; 84484; 84550; 85025; 85060; 85610; 85730; 87040; 87070; 87116; 87205; 87206; 87635; 87804; 88112; 88305; 88341; 88342; 89051; 93005; 93010; 93306; 93798; 96365; 96366; 96368; J0696; J1650; J1940; J3370; J3420; J7500; Q0162; U0003

== ENCOUNTER 2019-11-25 11:19 | Inpatient (IN) | payer MEDICARE, OTHER ==
[2019-11-25] MEDS ORDERED: PROPOFOL 200 MG/20 ML VIAL ONE (11:21)
[2019-11-25] MEDS ORDERED: Lidocaine 1% PF 5 ML VIAL ONE (11:21)
[2019-11-25] MEDS ORDERED: Ondansetron PF 4 MG/2 ML Vial ONE ×2 (11:21→12:09)
[2019-11-25] MEDS ORDERED: Dexamethasone 20 MG/5 ML VIAL ONE (11:21)
[2019-11-25] MEDS ORDERED: EPHEDRINE 25 MG/5 ML SYRINGE ONE (11:21)
[2019-11-25] MEDS ORDERED: PHENYLEPHRINE-NS 100 MCG/ML 10 ML SYRINGE ONE (11:21)
[2019-11-25] MEDS ORDERED: Ketorolac Tromethamine 30 MG/ML VIAL ONE (11:21)
[2019-11-25] MEDS ORDERED: Rocuronium Bromide 10 MG/ML (10ML VIAL) ONE (11:21)
[2019-11-25] MEDS ORDERED: Succinylcholine Chloride 20 MG/ML 10 ml SYRINGE FS ONE (11:21)
[2019-11-25] MEDS ORDERED: Fentanyl 100 MCG/2 ML VIAL ONE ×3 (12:09→19:46)
[2019-11-25 12:18] LABS: INR-International Normal Ratio 1.1; Prothrombin Time 13.7 sec (12.0-14.7)
[2019-11-25 12:23] LABS: Hemoglobin 9.2 g/dL (14.0-18.0); Mean Corpuscular HGB CONC 29.9 g/dL (32.0-36.0); Mean Corpuscular Hemoglobin 28.9 pg (27.0-31.0); Mean Corpuscular Volume 96.4 fL (78.0-98.0); Mean Platelet Volume 6.9 fL (7.4-10.4); Platelet Count 367 thou/uL (130-400); Red Blood Cell (RBC) Count 3.19 mill/uL (4.70-6.10); White Blood Cell (WBC) Count 8.3 thou/uL (4.8-10.8)
[2019-11-25 12:33] LABS: ALT (SGPT) Less than 7 U/L (8-55); AST (SGOT) 35 U/L (5-34); Albumin 2.6 g/dL (3.4-4.8); Alkaline Phosphatase 73 U/L (40-110); Anion Gap 18 mmol/L (10-20); BUN (Urea Nitrogen) 7 mg/dL (8.4-25.7); Bilirubin, Total 0.7 mg/dL (0.2-1.2); Calc. Creatinine Clearance 0 mL/min (70-130); Calcium 8.6 mg/dL (7.8-10.44); Carbon Dioxide 22 mmol/L (23-31); Chloride 100 mmol/L (98-107); Estimated GFR-MDRD Greater than 90; Globulin 2.9 g/dL (2.4-3.5); Glucose 102 mg/dL (83-110); Protein, Total 5.5 g/dL (5.8-8.1); Sodium 135 mmol/L (136-145)
--- NOTE | 2019-11-25 12:35 | RAD ---
RADIOGRAPH CHEST 1 VIEW: DATE: 11/25/2019 TIME: 11:52 AM HISTORY: 79-year-old male status post acute chest trauma from fall COMPARISON: 11/21/2019 FINDINGS: This is a supine image which would be insensitive for pneumothorax detection. Posteriorly layering of the previously demonstrated right pleural effusion. Smaller left pleural effusion. Dense opacification of medial bases of bilateral lungs. Left upper lobe clear. IMPRESSION: 1. Bilateral pleural effusions, right greater than left. 2. Dense opacification of bilateral lung bases similar to prior study.
--- NOTE | 2019-11-25 12:40 | RAD ---
Radiograph left femur 2 views: DATE: 11/25/2019 Time: 11:39 AM HISTORY: 79-year-old male with acute traumatic pain to left thigh from fall. FINDINGS: There is an acute fracture at the proximal diaphysis, with 50 degree anterior angulation and 25 degre e lateral angulation, of fracture apex (posterior and medial angulation of distal fragment). There is approximately 30% shaft width medial displacement of the distal fragment. No translation in the AP dimension. There is an approximately 2.5 x 2.5 x 3.5 cm lucency at the distal portion of the fracture which is questionable for an osteolytic lesion. IMPRESSION: Acute, traumatic, displaced, and angulated fracture of the left proximal femoral shaft, possibly a pa thologic fracture.
--- NOTE | 2019-11-25 12:41 | RAD ---
Radiograph pelvis one view: 11/25/2019 11:38 AM HISTORY: 79-year-old male status post acute pelvic trauma from fall FINDINGS: Pelvic ring appears to be intact with no evidence of displaced fracture. No dislocation. High-grade d egenerative disc disease at L4-5 in lumbar spine. IMPRESSION: No pelvic fracture identified
[2019-11-25 12:51] LABS: Band 9 % (5-11); Hypochromia SLIGHT = 6-15 cells (100X) (0-5/hpf); Lymphocytes 2 % (21-51); MDiff Complete? YES; Monocytes 11 % (0-10); Neutrophil 77 % (42-75); Platelet Morphology Comment Appears Adequate; Polychromasia SLIGHT = 2-3 cells (100X) (0-2/hpf); Reactive Lymphocytes 1 % (0-10); Tear Drops SLIGHT = 2-5 cells (100X) (0-1/hpf)
[2019-11-25] MEDS ORDERED: CEFAZOLIN 2 GM in Premix Bag 1 BAG IVPB SCH (13:15)
[2019-11-25] MEDS ORDERED: Promethazine HCl 25 MG/ML VIAL ONE (13:22)
--- NOTE | 2019-11-25 13:24 | PDOC.FPRHP ---
- History of Present Illness Chief Complaint: Broken leg History of Present Illness: Mr. Oliveros is a 79yoM who was recently discharged from the hospital who presents to the ER after he fell while transferring from walker to car on his way to the hospital for radiation treatment. He complains of 10/10 leg pain and leg deformity. Otherwise history has not changed from last admission 11/19/19. ED Course: Promethazine 25mg, Zofran 4mg, Fentanyl 100mcg. Received 100mcg fentanyl, 60 ketamine, and 8 of zofran in EMS. - Allergies/Adverse Reactions Allergies Allergy/AdvReac Type Severity Reaction Status Date / Time No Known Allergies Allergy Verified 11/25/19 23:36 - Home Medications Medication Instructions Recorded Confirmed Type Amlodipine Besylate [amLODIPine 10 mg PO QPM 01/13/14 11/25/19 History Besylate] Atorvastatin Calcium 10 mg PO QPM 01/13/14 11/25/19 History Aspirin Chewable [Aspirin Chewable 81 mg PO QPM 10/07/16 11/25/19 History Tablet] Balsalazide Disodium [Colazal] 1,500 mg PO BID 10/07/16 11/25/19 History Esomeprazole Magnesium [NexIUM] 20 mg PO QAM 10/07/16 11/25/19 History Pregabalin [Lyrica] 150 mg PO BID 10/07/16 11/25/19 History Carvedilol 25 mg PO BID 03/26/18 11/25/19 History Cyanocobalamin (Vitamin B-12) 1,000 mcg IM Q28D 03/26/18 11/25/19 History [Cyanocobalamin Injection] Spironolactone 25 mg PO QAM 03/26/18 11/25/19 History Lactobacillus Acidophilus 1 cap PO DAILY 03/30/19 11/25/19 History [Probiotic] Immunotherapy Chemo 05/18/19 History Diphenoxylate HCl/Atropine 2 tab PO QID PRN 11/20/19 11/25/19 History [Lomotil] Multivit-Min/FA/Lycopen/Lutein 1 each PO DAILY 11/20/19 11/25/19 History [Centrum Silver Tablet] Ondansetron HCl [Zofran] 4 mg PO Q6HR PRN 11/20/19 11/25/19 History azaTHIOprine [Imuran] 100 mg PO BID 11/20/19 11/25/19 History fentaNYL [Duragesic] 25 mcg TD Q3D 11/20/19 11/25/19 History oxyCODONE /Acetaminophen [Percocet] 1 tab PO Q4HR PRN 11/20/19 11/25/19 History - History PMHx: HTN, HLD, Renal Cell Carcinoma s/p R Nephrectomy, Small Cell Lung Carcinoma, 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 PCP: Dr. Ramos Oncologist: Dr. Bay, Dr. Garcia Block Saw Operator: Dr. Castle - Review of Systems General: denies: fever/chills, weight/appetite/sleep changes, night sweats Eyes: denies: eye pain, vision changes ENT: denies: nasal congestion, rhinorrhea Respiratory: reports: congestion, shortness of breath (on 2L O2 @ home), exercise intolerance. denies: cough Cardiovascular: denies: chest pain, palpitation, edema, paroxysmal nocturnal dyspnea, orthopnea Gastrointestinal: reports: nausea. denies: vomiting, diarrhea, constipation, abdominal pain Genitourinary: denies: incontinence, dysuria Skin: denies: rashes, lesions Musculoskeletal: reports: pain, tenderness, swelling, other (fracture) Neurological: reports: weakness. denies: numbness, syncope, seizure - Vital signs BP: 124/63, MAP: 83, Pulse: 90, Resp: 18, Pain: 10, O2 sat: 92 on (3L Oxygen), Time: 11/25/2019 13:27 Weight 72kg - Physical Exam Constitutional: NAD, awake, alert and oriented, well developed HEENT: PERRLA, conjunctiva clear, grossly normal vision, grossly normal hearing , MMM Neck: supple, trachea midline Heart: RRR, normal S1/S2, no murmurs/rubs/gallops, pulses present Lungs: CTAB, no respiratory distress, good air movement, no rales/rhonchi, no wheezing Abdomen: soft, non-tender -Musculoskeletal: Significant deformity noted on left thigh Skin: no rash/lesions, good turgor -Heme/Lymphatic: Senile purpura FMR H&P: Results - Labs Result Diagrams: 05/09/20 05:38 11/26/19 05:38 Lab results: WBC 8.3 thou/uL (4.8-10.8) 11/25/19 12:01 Hgb 9.2 g/dL (14.0-18.0) L 11/25/19 12:01 Hct 30.7 % (42.0-52.0) L 11/25/19 12:01 MCV 96.4 fL (78.0-98.0) 11/25/19 12:01 Plt Count 367 thou/uL (130-400) 11/25/19 12:01 Band Neuts % (Manual) 9 % (5-11) 11/25/19 12:01 Sodium 135 mmol/L (136-145) L 11/25/19 12:01 Potassium 5.0 mmol/L (3.5-5.1) 11/25/19 12:01 Chloride 100 mmol/L (98-107) 11/25/19 12:01 Carbon Dioxide 22 mmol/L (23-31) L 11/25/19 12:01 BUN 7 mg/dL (8.4-25.7) L 11/25/19 12:01 Creatinine 0.63 mg/dL (0.7-1.3) L 11/25/19 12:01 Glucose 102 mg/dL (83-110) 11/25/19 12:01 Calcium 8.6 mg/dL (7.8-10.44) 11/25/19 12:01 Total Bilirubin 0.7 mg/dL (0.2-1.2) 11/25/19 12:01 AST 35 U/L (5-34) H 11/25/19 12:01 ALT Less than 7 U/L (8-55) L 11/25/19 12:01 Alkaline Phosphatase 73 U/L (40-110) 11/25/19 12:01 Serum Total Protein 5.5 g/dL (5.8-8.1) L 11/25/19 12:01 Albumin 2.6 g/dL (3.4-4.8) L 11/25/19 12:01 - Radiology Interpretation Other Status: report reviewed by me ( IMPRESSION: No pelvic fracture identified. Acute, traumatic, displaced, and angulated fracture of the left proximal femoral shaft, possibly a pathologic fracture.) Chest x-ray Status: report reviewed by me (1. Bilateral pleural effusions, right greater than left. 2. Dense opacification of bilateral lung bases similar to prior study.) FMR H&P: A/P - Problem List (1) Left femoral shaft fracture Current Visit: Yes Status: Acute Code(s): S72.302A - UNSP FRACTURE OF SHAFT OF LEFT FEMUR, INIT FOR CLOS FX (2) Heart failure with reduced ejection fraction Current Visit: No Status: Acute Code(s): I50.20 - UNSPECIFIED SYSTOLIC ( CONGESTIVE) HEART FAILURE (3) Hyperlipidemia Current Visit: No Status: Acute Code(s): E78.5 - HYPERLIPIDEMIA, UNSPECIFIED (4) Hyponatremia Current Visit: No Status: Acute Code(s): E87.1 - HYPO-OSMOLALITY AND HYPONATREMIA (5) Immunocompromised patient Current Visit: No Status: Acute Code(s): D89.9 - DISORDER INVOLVING THE IMMUNE MECHANISM, UNSPECIFIED (6) Metastasis to lung Current Visit: No Status: Acute Code(s): C78.00 - SECONDARY MALIGNANT NEOPLASM OF UNSPECIFIED LUNG (7) Pleural effusion Current Visit: No Status: Acute Code(s): J90 - PLEURAL EFFUSION, NOT ELSEWHERE CLASSIFIED (8) Renal cell carcinoma Current Visit: No Status: Acute Code(s): C64.9 - MALIGNANT NEOPLASM OF UNSP KIDNEY, EXCEPT RENAL PELVIS (9) Small cell carcinoma Current Visit: No Status: Acute Code(s): C80.1 - MALIGNANT (PRIMARY) NEOPLASM, UNSPECIFIED (10) Squamous cell carcinoma Current Visit: No Status: Acute Code(s): PGP9158 - - Plan Left proximal femoral shaft fracture -Dr. Mello consulted from ER, plans to take to operating room this afternoon. -NPO - Ortho on board, appreciate management. HFrEF -last echo EF 50-55% 11/21/19 -will monitor fluid status Stage 2 Sacral Ulcer -wound care consult Normocytic Anemia -likely 2/2 Chronic disease Renal Cell Carcinoma s/p Nephrectomy and Small Cell Lung Cancer and Squamous Cell Carcinoma: -Plans to go on hospice care once discharged HTN: -restart home meds when available HLD: -restart home meds when available Dispo: stable DVT PPx: lovenox GI PPx: none Code Status: DNR FMR H&P: Upper Level - Plan Date/Time: 11/25/19 1324 I, Monique Roe MD, have evaluated this patient and agree with findings/plan as outlined by financial services intern resident. Pertinent changes/additions are listed here. HPI: see financial services intern note for full hx. In short, patient has PMH of RCC, SCC of lung , and small cell. He was on his way to radiation when he fell and broke his left femur. PE: General: s/p ketamine, NAD, resting in bed Cardio: RRR, no murmur Resp: B/l symmetrical chest rise, CTAB Abd: soft, nondistended, BS normal MSK: LLE - obvious deformity of left upper leg Psych: lethargic, not alert A&P: admit to surgical, will consult ortho. PT. Case discussed with Dr. Garcia Addendum - Attending - Attending Attestation Date/Time: 11/28/19 4209 I personally evaluated the patient and discussed the management with Dr. Carrington on 11/25/19. I agree with the History, Examination, Assessment and Plan documented above with any addition or exceptions noted below. 79 y.o. 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 Will provide medical mgt.
[2019-11-25] MEDS ORDERED: Ondansetron PF 4 MG/2 ML Vial IVP PRN (13:55)
[2019-11-25] MEDS ORDERED: traMADol HCl 50 MG TAB PO PRN (13:55)
[2019-11-25] MEDS ORDERED: Morphine 4 MG/ML VIAL SLOW IVP PRN (13:55)
[2019-11-25] MEDS ORDERED: Morphine 2 MG/ML SYRINGE SLOW IVP PRN (13:55)
[2019-11-25] MEDS ORDERED: SUGAMMADEX SODIUM 200 MG/2 ML VIAL ONE (18:10)
--- NOTE | 2019-11-25 18:59 | RAD ---
Right femur 2 views intraoperative fluoroscopy HISTORY: Fracture. FINDINGS: Intraoperative fluoroscopy was provided for internal fixation of the right femur as perform ed by Dr. Mello. Spot fluoroscopic images show a long medullary april and hip compression nail to transfix the femoral shaft fracture. Alignment is anatomic. Fluoroscopy time 117 seconds.
[2019-11-25] MEDS ORDERED: Ondansetron HCl/PF 4 MG/2 ML Vial IVP PRN (19:05)
[2019-11-25] MEDS ORDERED: Promethazine HCl 25 MG/ML VIAL IM PRN (19:05)
[2019-11-25] MEDS ORDERED: Meperidine HCl/PF 25 MG/ML VIAL SLOW IVP PRN (19:05)
[2019-11-25] MEDS ORDERED: Promethazine HCl 25 MG/ML VIAL SLOW IVP PRN (19:05)
[2019-11-25] MEDS ORDERED: HYDROmorphone 2 MG/ML VIAL SLOW IVP PRN (19:05)
--- NOTE | 2019-11-25 21:26 | OP ---
DATE OF PROCEDURE: 11/25/2019 PROCEDURE PERFORMED: Intramedullary nail of left femur. PREOPERATIVE DIAGNOSIS: Left pathologic femur fracture. POSTOPERATIVE DIAGNOSIS: Left pathologic femur fracture. COMPLICATIONS: None. ESTIMATED BLOOD LOSS: 150 mL. OUTDOOR PURSUITS INSTRUCTOR: Montse Yee PA-C IMPLANT: Synthes 14 mm x 440 mm femoral nail with cross-lock screws and helical blade. INDICATIONS FOR PROCEDURE: Baldo is a 79-year-old male, who has metastatic renal cell carcinoma. He has had other cancers as well. He has been indicated for intramedullary nail fixation of a pathologic left femur fracture. He has metastatic disease. He has elected to proceed for pain relief and ability to mobilize. Risks have been reviewed, they are extensive. DESCRIPTION OF PROCEDURE: Baldo was identified in the preoperative holding area. His correct extremity was marked. He was carried to the operating room. He was positioned supine. General anesthesia was induced. A multidisciplinary time-out was performed. The left lower extremity was prepped and draped in sterile fashion. We pulled traction on the leg and manipulated the femur with the traction table. At this point, we made a small incision over the tip of the greater trochanter. We inserted our guidewire at the tip of the trochanter. The guidewire was over reamed. We then passed our ball-tipped guidewire across the fracture site, seating this distally. We measured the length. We then reamed sequentially from a size 8.5 reamer to a size 15 reamer. We then inserted a 14 mm nail. We centered the proximal guidewire in the center of the femoral head on intraoperative x-ray and passed our helical blade providing proximal fixation. We then placed a perfect grindstone cross-lock screw distally. This concluded our placement. We took out all final x-ray images. We thoroughly irrigated. We then closed appropriately in layers. A sterile dressing was applied. The patient was taken to the recovery room in good condition. Job ID: [id number]
[2019-11-25] MEDS: Famotidine 20 MG TAB PO SCH (21:59)
[2019-11-26 05:47] LABS: #Lymphocytes 0.2 thou/uL (1.20-3.40); #Monocytes 0.5 thou/uL (0.11-0.59); #Neutrophils 8.2 thou/uL (1.40-6.50); %Eosinophils 0.2 % (0.0-10.0); %Lymphocytes 1.8 % (21.0-51.0); %Monocytes 5.9 % (0.0-10.0); %Neutrophils 92.1 % (42.0-75.0); Hemoglobin 8.1 g/dL (14.0-18.0); Mean Corpuscular HGB CONC 30.1 g/dL (32.0-36.0); Mean Corpuscular Hemoglobin 29.3 pg (27.0-31.0); Mean Corpuscular Volume 97.5 fL (78.0-98.0); Mean Platelet Volume 7.3 fL (7.4-10.4); Platelet Count 361 thou/uL (130-400); RBC Distribution Width 18.2 % (11.5-14.5); Red Blood Cell (RBC) Count 2.77 mill/uL (4.70-6.10); White Blood Cell (WBC) Count 8.9 thou/uL (4.8-10.8)
[2019-11-26 06:06] LABS: Anion Gap 17 mmol/L (10-20); BUN (Urea Nitrogen) 9 mg/dL (8.4-25.7); Calc. Creatinine Clearance 0 mL/min (70-130); Calcium 8.4 mg/dL (7.8-10.44); Carbon Dioxide 23 mmol/L (23-31); Chloride 100 mmol/L (98-107); Estimated GFR-MDRD Greater than 90; Glucose 108 mg/dL (83-110); Potassium 4.5 mmol/L (3.5-5.1); Sodium 135 mmol/L (136-145)
--- NOTE | 2019-11-26 06:41 | PDOC.FM ---
- Subjective Subjective: Just woke up this morning. Denies pain currently. Not hungry. He had surgery yesterday for his femur fracture. - Objective MAR Reviewed: Yes Vital Signs & Weight: Vital Signs (12 hours) Temp Pulse Resp BP Pulse Ox 11/26/19 04:00 98.1 F 87 16 117/60 98 11/25/19 20:30 100 11/25/19 20:26 97.8 F 91 16 119/58 L 100 Result Diagrams: 11/26/19 05:38 11/26/19 05:38 Phys Exam - Physical Examination Constitutional: NAD HEENT: moist MMs Neck: supple Respiratory: no wheezing, clear to auscultation bilateral Cardiovascular: RRR, no significant murmur Gastrointestinal: soft, non-tender Musculoskeletal: pulses present (dorsalis pedis) dressings applied to proximal and distal left femur Neurological: moves all 4 limbs Psychiatric: normal affect, A&O x 3 Skin: no rash, normal turgor Dx/Plan - Plan Plan: Left proximal femoral shaft fracture - Dr. Mello consulted, surgery yesterday - Continue pts home pain medication, has Morphine available PRN. HFrEF - Echo 5/ EF 50-55% - Strict I&Os, daily wt Stage 2 Sacral Ulcer - Wound care consulted Normocytic Anemia -likely 2/2 Chronic disease Renal Cell Carcinoma s/p Nephrectomy and Small Cell Lung Cancer and Squamous Cell Carcinoma - Plans to go on hospice care once discharged HTN - Continue home meds HLD - Continue home meds DVT PPx: lovenox GI PPx: none Code Status: DNR Addendum - Attending - Attending Attestation Date/Time: 11/26/19 1031 I personally evaluated the patient and discussed the management with Dr. Bazzi I agree with the History, Examination, Assessment and Plan documented above with any addition or exceptions noted below - Patient without complaints. Worked with PT and OT today. Afebrile VSS. A/P: 1) Left femur fracture - s/p fixation; continue PT/OT. 2) HFrEF- continue home meds.
[2019-11-26] MEDS ORDERED: Diphenoxylate HCl/Atropine Tablet PO PRN (06:43)
[2019-11-26 06:45] VITALS: BMI 24.3
[2019-11-26] MEDS ORDERED: Cyanocobalamin 1000 MCG/ML VIAL IM SCH ×2 (09:00→10:45)
[2019-11-26] MEDS ORDERED: Non-Formulary Item 1 EACH (Pregabalin [Lyrica] 150 MG) PO SCH (09:00)
[2019-11-26] MEDS ORDERED: Non-Formulary Item 1 EACH (Multivit-Min/Fa/Lycopen/Lutein [Centrum Silver Tablet] 1 EACH) PO SCH (09:00)
[2019-11-26] MEDS ORDERED: Non-Formulary Item 1 EACH (Esomeprazole Magnesium [Nexium] 20 MG) PO SCH (09:00)
[2019-11-26] MEDS ORDERED: LACTOBACILLUS ACIDOPHILUS PO SCH (09:00)
[2019-11-26] MEDS: Enoxaparin Sodium 40 MG/0.4 ML SYRINGE SC SCH (09:30)
[2019-11-26] MEDS: Pregabalin 75 MG CAP PO SCH ×2 (09:30→20:34)
[2019-11-26] MEDS: Famotidine 20 MG TAB PO SCH ×2 (09:32→20:35)
[2019-11-26] MEDS: azaTHIOprine 50 MG TAB PO SCH ×2 (09:33→20:35)
[2019-11-26] MEDS: Multivitamin W/ Minerals 1 TAB PO SCH (09:33)
[2019-11-26] MEDS: Carvedilol 25 MG TAB PO SCH ×2 (09:33→20:38)
[2019-11-26] MEDS: Aspirin 81 mg Enteric Coated Tablet PO SCH (09:33)
[2019-11-26] MEDS: Spironolactone 25 MG TAB PO SCH (09:33)
[2019-11-26] MEDS: Lactinex Tablet PO SCH (09:34)
[2019-11-26] MEDS: oxyCODONE/Acetaminophen 5 mg/325 mg Tablet PO PRN ×2 (09:59→20:36)
[2019-11-26] MEDS: Atorvastatin Calcium 10 MG TAB PO SCH (20:34)
--- NOTE | 2019-11-27 07:29 | PDOC.FM ---
- Subjective Subjective: Feeling okay this morning. Good appetite. Reports some pain that is relieved with percocet. Has been working PT. Recommends Rehab for placement. - Objective MAR Reviewed: Yes Vital Signs & Weight: Vital Signs (12 hours) Temp Pulse BP Pulse Ox 11/26/19 20:00 97.9 F 88 100/50 L 92 L Weight Weight 80.422 kg I&O: 11/26/19 11/27/19 11/28/19 06:59 06:59 06:59 Intake Total 240 240 Output Total 350 375 Balance -110 -135 Result Diagrams: 11/26/19 05:38 11/26/19 05:38 Phys Exam - Physical Examination Constitutional: NAD HEENT: moist MMs Neck: supple Respiratory: no wheezing, clear to auscultation bilateral Cardiovascular: RRR Gastrointestinal: soft Musculoskeletal: no edema Psychiatric: normal affect, A&O x 3 Skin: no rash Dx/Plan - Plan Plan: Left proximal femoral shaft fracture - Dr. Mello consulted, surgery yesterday - Continue pts home pain meds, has Morphine available PRN. - CM consulted for rehab placement HFrEF - Echo 5/4 EF 50-55% - Strict I&Os, daily wt Stage 2 Sacral Ulcer - Wound care consulted Normocytic Anemia -likely 2/2 Chronic disease Renal Cell Carcinoma s/p Nephrectomy and Small Cell Lung Cancer and Squamous Cell Carcinoma - Plans to go on hospice care once discharged HTN - Continue home meds HLD - Continue home meds DVT PPx: lovenox GI PPx: none Code Status: DNR Addendum - Attending - Attending Attestation Date/Time: 11/27/19 1035 I personally evaluated the patient and discussed the management with Dr. Bazzi. I agree with the History, Examination, Assessment and Plan documented above with any addition or exceptions noted below - patient just finished working with PT. Afebrile VSS. A/P: 1) Left femur fracture secondary to pathologic fracture s/p repair - continue PT/OT; needs significant assistance; rehab screen placed. 2) Metastatic cancer- completed XRT. 3) HTN- BP stable.
[2019-11-27] MEDS: Aspirin 81 mg Enteric Coated Tablet PO SCH (08:32)
[2019-11-27] MEDS: Famotidine 20 MG TAB PO SCH ×2 (08:33→21:31)
[2019-11-27] MEDS: azaTHIOprine 50 MG TAB PO SCH ×2 (08:34→21:31)
[2019-11-27] MEDS: Pregabalin 75 MG CAP PO SCH ×2 (08:34→21:30)
[2019-11-27] MEDS: Multivitamin W/ Minerals 1 TAB PO SCH (08:35)
[2019-11-27] MEDS: Spironolactone 25 MG TAB PO SCH (08:35)
[2019-11-27] MEDS: oxyCODONE/Acetaminophen 5 mg/325 mg Tablet PO PRN ×2 (08:35→21:31)
[2019-11-27] MEDS: Carvedilol 25 MG TAB PO SCH ×2 (08:35→21:31)
[2019-11-27] MEDS: Lactinex Tablet PO SCH (08:35)
[2019-11-27] MEDS: Enoxaparin Sodium 40 MG/0.4 ML SYRINGE SC SCH (08:36)
[2019-11-27] MEDS: Atorvastatin Calcium 10 MG TAB PO SCH (21:32)
--- NOTE | 2019-11-28 05:37 | PDOC.FM ---
- Subjective Subjective: No pain this morning. Discussed plan for rehab and hospice - pt continues to express these wishes and agrees with plan. No events overnight. - Objective Vital Signs & Weight: Vital Signs (12 hours) Temp Pulse Resp BP Pulse Ox 11/28/19 00:30 96 11/27/19 21:25 103/55 L 11/27/19 20:00 96 11/27/19 19:17 98.2 F 84 16 91/55 L 96 Weight Weight 80.422 kg I&O: 11/26/19 11/27/19 11/28/19 06:59 06:59 06:59 Intake Total 240 240 540 Output Total 350 375 500 Balance -110 -135 40 Result Diagrams: 11/26/19 05:38 11/26/19 05:38 Phys Exam - Physical Examination Constitutional: NAD HEENT: moist MMs No resp distress Musculoskeletal: no edema, pulses present Neurological: normal sensation limited LLE movement - s/p intramedullary Psychiatric: normal affect, A&O x 3 Skin: cap refill <2 seconds Dx/Plan (1) Left femoral shaft fracture Code(s): S72.302A - UNSP FRACTURE OF SHAFT OF LEFT FEMUR, INIT FOR CLOS FX Status: Acute (2) Heart failure with reduced ejection fraction Code(s): I50.20 - UNSPECIFIED SYSTOLIC (CONGESTIVE) HEART FAILURE Status: Acute (3) Hyperlipidemia Code(s): E78.5 - HYPERLIPIDEMIA, UNSPECIFIED Status: Acute (4) Immunocompromised patient Code(s): D89.9 - DISORDER INVOLVING THE IMMUNE MECHANISM, UNSPECIFIED Status: Acute (5) Metastasis to lung Code(s): C78.00 - SECONDARY MALIGNANT NEOPLASM OF UNSPECIFIED LUNG Status: Acute (6) Post-op pain Code(s): G89.18 - OTHER ACUTE POSTPROCEDURAL PAIN Status: Acute (7) Renal cell carcinoma Code(s): C64.9 - MALIGNANT NEOPLASM OF UNSP KIDNEY, EXCEPT RENAL PELVIS Status : Acute (8) Small cell carcinoma Code(s): C80.1 - MALIGNANT (PRIMARY) NEOPLASM, UNSPECIFIED Status: Acute (9) Squamous cell carcinoma Code(s): [id number] - Status: Acute (10) Normocytic anemia Code(s): D64.9 - ANEMIA, UNSPECIFIED Status: Chronic - Plan Plan: Left proximal femoral shaft fracture - Dr. Mello - left intramedullary nail - Continue pts home pain meds, has Morphine available PRN. - CM consulted - pending rehab placement, hospice HFrEF - Echo 5/4 EF 50-55% - Strict I&Os, daily wt Stage 2 Sacral Ulcer - Wound care consulted Normocytic Anemia -likely 2/2 Chronic disease Renal Cell Carcinoma s/p Nephrectomy and Small Cell Lung Cancer and Squamous Cell Carcinoma - Plans to go on hospice care once discharged HTN - Continue home meds HLD - Continue home meds DVT PPx: lovenox GI PPx: none Code Status: DNR Dispo: Post op intramedullary nail. Pending rehab placement. Addendum - Attending - Attending Attestation Date/Time: 11/28/19 5977 I personally evaluated the patient and discussed the management with Dr. العلي. I agree with the History, Examination, Assessment and Plan documented above with any addition or exceptions noted below. Continue therapy s/p pathologic hip fx s/p fixation. Decision on rehab versus hospice. Rad Onc on board.
[2019-11-28] MEDS: Pregabalin 75 MG CAP PO SCH ×2 (09:49→20:55)
[2019-11-28] MEDS: Lactinex Tablet PO SCH (09:49)
[2019-11-28] MEDS: Carvedilol 25 MG TAB PO SCH ×2 (09:51→20:56)
[2019-11-28] MEDS: azaTHIOprine 50 MG TAB PO SCH ×2 (09:51→20:56)
[2019-11-28] MEDS: Aspirin 81 mg Enteric Coated Tablet PO SCH (09:52)
[2019-11-28] MEDS: Multivitamin W/ Minerals 1 TAB PO SCH (09:52)
[2019-11-28] MEDS: Enoxaparin Sodium 40 MG/0.4 ML SYRINGE SC SCH (09:52)
[2019-11-28] MEDS: Famotidine 20 MG TAB PO SCH ×2 (09:52→20:56)
[2019-11-28] MEDS: Spironolactone 25 MG TAB PO SCH (09:55)
[2019-11-28] MEDS: oxyCODONE/Acetaminophen 5 mg/325 mg Tablet PO PRN ×2 (10:16→19:32)
--- NOTE | 2019-11-28 14:04 | PDOC.MOPN ---
Interval History: Events of this admission noted. Patient has pain only when moving left leg. - Vital Signs Vital Signs: Vital Signs (12 hours) Temp Pulse Resp BP Pulse Ox 11/28/19 08:00 98.3 F 81 18 102/57 L 95 Weight Weight 176 lb - Physical Exam General: Alert, Oriented x3, No acute distress HEENT: Other (squamous cell resection, forehead) Lungs: Clear to auscultation Cardiovascular: Regular rate Abdomen: Normal bowel sounds Extremities: Other Neurological: Normal speech Psych/Mental Status: Mental status NL - Labs Result Diagrams: 11/26/19 05:38 11/26/19 05:38 Status: lab reviewed by me A/P - Problem (1) Left femoral shaft fracture Current Visit: Yes Code(s): S72.302A - UNSP FRACTURE OF SHAFT OF LEFT FEMUR, INIT FOR CLOS FX Status: Acute (2) Renal cell carcinoma Current Visit: No Code(s): C64.9 - MALIGNANT NEOPLASM OF UNSP KIDNEY, EXCEPT RENAL PELVIS Status: Acute (3) Squamous cell carcinoma Current Visit: No Code(s): [id number] - Status: Acute - Plan Plan: repair of left femur tomorrow patient has decided on hospice rather than rehab pain control
[2019-11-28] MEDS ORDERED: CEFAZOLIN 2 GM in Premix Bag 1 BAG IVPB SCH (17:30)
[2019-11-28] MEDS: Senokot S 8.6-50 MG TAB PO PRN (19:31)
[2019-11-28] MEDS: Atorvastatin Calcium 10 MG TAB PO SCH (20:56)
--- NOTE | 2019-11-29 06:04 | PDOC.FM ---
- Subjective Subjective: Pt denies any complaints today. Discussed his upcoming assessment and possible procedure today and pt expressed understanding. No events overnight. - Objective Vital Signs & Weight: Vital Signs (12 hours) Temp Pulse Resp BP Pulse Ox 11/28/19 19:31 98.1 F 90 16 96/52 L 97 11/28/19 19:30 2 L Weight Weight 79.832 kg I&O: 11/27/19 11/28/19 11/29/19 06:59 06:59 06:59 Intake Total 240 540 Output Total 375 500 Balance -135 40 Result Diagrams: 11/26/19 05:38 11/26/19 05:38 Phys Exam - Physical Examination Constitutional: NAD HEENT: moist MMs Respiratory: clear to auscultation bilateral Cardiovascular: RRR Gastrointestinal: soft Musculoskeletal: no edema LLE with foot internally rotated, decreased ROM s/p op Neurological: non-focal Psychiatric: normal affect Skin: cap refill <2 seconds Deviation from normal: Pale Dx/Plan (1) Left femoral shaft fracture Code(s): S72.302A - UNSP FRACTURE OF SHAFT OF LEFT FEMUR, INIT FOR CLOS FX Status: Acute (2) Heart failure with reduced ejection fraction Code(s): I50.20 - UNSPECIFIED SYSTOLIC (CONGESTIVE) HEART FAILURE Status: Acute (3) Hyperlipidemia Code(s): E78.5 - HYPERLIPIDEMIA, UNSPECIFIED Status: Acute (4) Immunocompromised patient Code(s): D89.9 - DISORDER INVOLVING THE IMMUNE MECHANISM, UNSPECIFIED Status: Acute (5) Metastasis to lung Code(s): C78.00 - SECONDARY MALIGNANT NEOPLASM OF UNSPECIFIED LUNG Status: Acute (6) Post-op pain Code(s): G89.18 - OTHER ACUTE POSTPROCEDURAL PAIN Status: Acute (7) Renal cell carcinoma Code(s): C64.9 - MALIGNANT NEOPLASM OF UNSP KIDNEY, EXCEPT RENAL PELVIS Status : Acute (8) Small cell carcinoma Code(s): C80.1 - MALIGNANT (PRIMARY) NEOPLASM, UNSPECIFIED Status: Acute (9) Squamous cell carcinoma Code(s): [id number] - Status: Acute (10) Normocytic anemia Code(s): D64.9 - ANEMIA, UNSPECIFIED Status: Chronic - Plan Plan: Left proximal femoral shaft fracture - Dr. Mello - left intramedullary nail 3 days ago, return to OR today for possible revision - Continue pts home pain meds, has Morphine available PRN. - CM and palliative consulted - pt requesting hospice upon discharge HFrEF - Echo 5/4 EF 50-55% - Strict I&Os, daily wt Stage 2 Sacral Ulcer - Wound care consulted Normocytic Anemia -likely 2/2 Chronic disease Renal Cell Carcinoma s/p Nephrectomy and Small Cell Lung Cancer and Squamous Cell Carcinoma - Plans to go on hospice care once discharged HTN - Continue home meds HLD - Continue home meds DVT PPx: lovenox GI PPx: none Code Status: DNR Dispo: Post op intramedullary nail, repeat procedure today by ortho. Pending transition to hospice post operatively. Addendum - Attending - Attending Attestation Date/Time: 11/29/19 8269 I personally evaluated the patient and discussed the management with Dr. العلي. I agree with the History, Examination, Assessment and Plan documented above with any addition or exceptions noted below. Patient stable. Going for possible hip revision today. Likely pursuing hospice services after he recovers from surgery.
--- NOTE | 2019-11-29 08:28 | PDOC.PALCO ---
Palliative Care Consult - Consult Details Requesting Physician: Dr العلي Reason for Consult: goals of care, advance directives assistance - Pertinent HPI 79 year old male who was recently discharged from the hospital and fell en route to radiation at the cancer center. for metastatic cancer. Presented to the emergency room for evaluation of pain and left leg deformity. Evaluation identified a left proximal femoral shaft fracture, was repaired in the OR. Lives independently with his in a private home setting. - Pertinent PMH Renal cell carcinoma, Small Cell lung Carcinoma, Squamous Cell Carcinoma, Heart failure, HTN, HDL - Social History Smoking Status: Never smoker Smoking: no tobacco exposure Alcohol Use: none Drug Use History: none Living Situation: independent, - Medications MAR Reviewed: Yes - Allergies Allergies/Adverse Reactions: Allergies Allergy/AdvReac Type Severity Reaction Status Date / Time No Known Allergies Allergy Verified 11/25/19 23:36 - Subjective Mildly sleep, but alert. States he is comfortable and denies pain. States pain presents when he "moves his leg". - ROS Constitutional: alert, lethargic ENT: other (Denies difficulity swallowing or congestion) Respiratory: shortness of breath with extertion Cardiology: other (Negative for chest pain, paliptations) Gastrointestinal: other (denies diarrhea, constipation. ) Genitourinary: other (Denies frequency, dysuria) Musculoskeletal: leg pain, limited mobility Psychological: other (Denies depression , anxiety) - Objective Vital Signs: Vital Signs - Most Recent Temp Pulse Resp BP Pulse Ox 98.1 F 90 16 96/52 L 97 11/28/19 19:31 11/28/19 19:31 11/28/19 19:31 11/28/19 19:31 11/28/19 19:31 Palliative Performance Scale: 30 - Physical Exam Constitutional: NAD, ill appearing Deviation from normal: Pallor HEENT: EOMI, moist MMs Respiratory: no wheezing, unlabored breathing Cardiovascular: no significant murmur, RRR Gastrointestinal: continent Genitourinary: continent Musculoskeletal: no cyanosis, no clubbing Deviation from normal: internal rotation of left extremity, decreased ROM left lower extremity Neurology: normal speech Skin: cap refill <2 seconds Deviation from normal: erythema to sacrum as per wound photo Psychiatric: A&O x 3, normal mood - Problem List (1) Palliative care encounter Code(s): Z51.5 - ENCOUNTER FOR PALLIATIVE CARE Current Visit: Yes Status: Acute (2) Left femoral shaft fracture Code(s): S72.302A - UNSP FRACTURE OF SHAFT OF LEFT FEMUR, INIT FOR CLOS FX Current Visit: Yes Status: Acute (3) Heart failure with reduced ejection fraction Code(s): I50.20 - UNSPECIFIED SYSTOLIC (CONGESTIVE) HEART FAILURE Current Visit: No Status: Acute (4) Metastasis to lung Code(s): C78.00 - SECONDARY MALIGNANT NEOPLASM OF UNSPECIFIED LUNG Current Visit: No Status: Acute (5) Renal cell carcinoma Code(s): C64.9 - MALIGNANT NEOPLASM OF UNSP KIDNEY, EXCEPT RENAL PELVIS Current Visit: No Status: Acute (6) Small cell carcinoma Code(s): C80.1 - MALIGNANT (PRIMARY) NEOPLASM, UNSPECIFIED Current Visit: No Status: Acute (7) Squamous cell carcinoma Code(s): [id number] - Current Visit: No Status: Acute - Plan/Recommendations Plan: Live review, met his in the [employer] at a dance. Have been over 50 years. Hopeful for successful surgery 11/28 to achieve optimal functional status. In addressing Goal of care he is hoping to transition to Hospice and transition to management of symptoms related to terminal conditions. Please also refer to Mirian Condon RN Noted in note section. Palliative Care will follow up to revisit GOC and facilitate transition to home setting. [60] minutes spent on this encounter with >50% of the time in counseling and coordination of care. Thank you for this very appropriate consult.
[2019-11-29] MEDS: Famotidine 20 MG TAB PO SCH ×2 (09:51→21:55)
[2019-11-29] MEDS: Spironolactone 25 MG TAB PO SCH (09:51)
[2019-11-29] MEDS: Aspirin 81 mg Enteric Coated Tablet PO SCH (09:51)
[2019-11-29] MEDS: Carvedilol 25 MG TAB PO SCH ×2 (09:51→21:55)
[2019-11-29] MEDS: Lactinex Tablet PO SCH (09:51)
[2019-11-29] MEDS: azaTHIOprine 50 MG TAB PO SCH ×2 (09:51→21:55)
[2019-11-29] MEDS: Pregabalin 75 MG CAP PO SCH ×2 (09:51→21:55)
[2019-11-29] MEDS: Multivitamin W/ Minerals 1 TAB PO SCH (09:52)
[2019-11-29] MEDS: Enoxaparin Sodium 40 MG/0.4 ML SYRINGE SC SCH (09:52)
[2019-11-29] MEDS ORDERED: Lidocaine 1% PF 5 ML VIAL ONE (10:45)
[2019-11-29] MEDS ORDERED: PHENYLEPHRINE-NS 100 MCG/ML 10 ML SYRINGE ONE (10:45)
[2019-11-29] MEDS ORDERED: PROPOFOL 200 MG/20 ML VIAL ONE (10:45)
[2019-11-29] MEDS ORDERED: Ondansetron PF 4 MG/2 ML Vial ONE (10:45)
[2019-11-29] MEDS ORDERED: Fentanyl 100 MCG/2 ML VIAL ONE (13:19)
[2019-11-29] MEDS ORDERED: Ondansetron HCl/PF 4 MG/2 ML Vial IVP PRN (14:44)
[2019-11-29] MEDS ORDERED: Promethazine HCl 25 MG/ML VIAL IM PRN (14:44)
[2019-11-29] MEDS ORDERED: Promethazine HCl 25 MG/ML VIAL SLOW IVP PRN (14:44)
[2019-11-29] MEDS ORDERED: Promethazine HCl 25 MG/ML VIAL ONE (14:54)
--- NOTE | 2019-11-29 18:16 | RAD ---
LEFT FEMUR TWO VIEWS: 11/29/19 INDICATION: Renailing of the right femur. COMPARISON: None. FINDINGS: Two submitted images of the distal right femur demonstrate an intramedullary aprli and distal interlock ing screw. There is heterotopic ossification seen along the medial femoral condyle of the distal righ t femur. Total fluoroscopic time was 33.2 seconds. Total exposure 2.71 mGy. IMPRESSION: 1. Revision of a right intramedullary femoral april. 2. 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 POS: BH
--- NOTE | 2019-11-29 20:53 | OP ---
DATE OF PROCEDURE: 11/29/2019 PREOPERATIVE DIAGNOSIS: Malreduced left femur fracture, status post intramedullary nailing. POSTOPERATIVE DIAGNOSIS: Malreduced left femur fracture, status post intramedullary nailing. PROCEDURE PERFORMED: Revision of left femoral nail (Crosslock screws). ANESTHESIA: General. DOCTOR OF PHARMACY: Montse Yee PA-C ESTIMATED BLOOD LOSS: 10 mL. IMPLANTS: 50 mm Crosslock screw for the [employer] TFN nail. COMPLICATIONS: None. DRAINS: None. SPECIMEN: Explanted distal Crosslock screw discarded. INDICATIONS FOR PROCEDURE: The patient is a pleasant 79-year-old gentleman, who sustained a pathologic fracture at the midshaft of his femur. This was treated with a TFN device. However, upon evaluation postoperatively, the patient was found to have extreme internal rotation of the femur. As such, after discussion with the patient including risks and benefits, we have decided to proceed with removal of a distal Crosslock screw and derotation of this femur trying to obtain more anatomic alignment. Informed consent has been obtained, I believe all questions answered. DESCRIPTION OF PROCEDURE: The patient was brought to the operating room and a time-out performed followed by induction of general anesthesia. Next, under anesthesia, the patient was positioned fully supine and then the exam under anesthesia was performed first with the non-affected right leg. At rest, he was found to have external rotation of the leg with the foot approximately 25 degrees externally rotated. When I flexed the hip and knee to 90 degrees and then internally and externally rotated the hip, he had essentially symmetric internal and external rotation. Next, evaluation of the left lower extremity was performed at rest. This was sitting in approximately 30 degrees of internal rotation. When I flexed the hip and knee to 90 degrees, he would not even come to neutral, rather he started about 10 degrees of internal rotation and then I could further internally rotate the leg to nearly 90 degrees. As such, this form the basis for our starting point of alignment. A sterile prep and drape were then performed. [place] were removed from the distal Crosslock screw site and the distal screw was removed without difficulty. Next, the leg was able to be reduced and rotated on the nail and then compressed with just manual impaction of the heel. Once done, the knee was brought into 90 degrees of flexion, as was the hip and this resulted in what felt to be symmetric internal and external rotation. As such, the distal femur was cross locked in this position. A small incision was made laterally at the distal femur. This was followed by blunt dissection down to the femur. Next, a drill under C-arm guidance was passed from the lateral cortex of femur across the most proximal of the distal Crosslock screw holes and then through the medial cortex of the distal femur. Measurement was performed and then the appropriate length distal Cross-lock screw applied. At the completion of this, the two small stab wounds were irrigated with bulb syringe and closed with gretchen. Xeroform gauze and tape dressing applied and then the patient was transferred to recovery room in stable condition. Job ID: [id number]
[2019-11-29] MEDS: Atorvastatin Calcium 10 MG TAB PO SCH (21:56)
[2019-11-29] MEDS: CEFAZOLIN 2 GM in Premix Bag 1 BAG IVPB SCH (21:56)
[2019-11-29] MEDS: oxyCODONE/Acetaminophen 5 mg/325 mg Tablet PO PRN (22:07)
[2019-11-30] MEDS: CEFAZOLIN 2 GM in Premix Bag 1 BAG IVPB SCH ×2 (05:51→14:20)
--- NOTE | 2019-11-30 06:07 | PDOC.FM ---
- Subjective Subjective: Pt had revision of left femur fracture yesterday. States he is feeling groggy yet from the surgery. Denies any SOB, CP, or much pain in his leg currently. - Objective Vital Signs & Weight: Vital Signs (12 hours) Temp Pulse Resp BP BP Pulse Ox 11/30/19 04:00 98.6 F 88 16 107/58 L 92 L 11/30/19 00:00 92 L 11/29/19 23:39 98.2 F 84 12 92/50 L 95 11/29/19 20:00 2 L 11/29/19 19:35 98.2 F 88 16 116/54 L 93 L 11/29/19 18:35 97.9 F 88 18 111/59 L 96 11/29/19 18:18 98.4 F 84 18 112/58 L 96 Weight Weight 80.286 kg I&O: 11/28/19 11/29/19 11/30/19 06:59 06:59 06:59 Intake Total 540 0 300 Output Total 500 425 Balance 40 -425 300 Result Diagrams: 11/30/19 06:12 11/30/19 06:12 Phys Exam - Physical Examination Constitutional: NAD HEENT: moist MMs Respiratory: clear to auscultation bilateral Cardiovascular: RRR, no significant murmur Musculoskeletal: no edema, pulses present Neurological: normal sensation, moves all 4 limbs Psychiatric: normal affect Deviation from normal: Pale Dx/Plan (1) Left femoral shaft fracture Code(s): S72.302A - UNSP FRACTURE OF SHAFT OF LEFT FEMUR, INIT FOR CLOS FX Status: Acute (2) Heart failure with reduced ejection fraction Code(s): I50.20 - UNSPECIFIED SYSTOLIC (CONGESTIVE) HEART FAILURE Status: Acute (3) Hyperlipidemia Code(s): E78.5 - HYPERLIPIDEMIA, UNSPECIFIED Status: Acute (4) Immunocompromised patient Code(s): D89.9 - DISORDER INVOLVING THE IMMUNE MECHANISM, UNSPECIFIED Status: Acute (5) Metastasis to lung Code(s): C78.00 - SECONDARY MALIGNANT NEOPLASM OF UNSPECIFIED LUNG Status: Acute (6) Post-op pain Code(s): G89.18 - OTHER ACUTE POSTPROCEDURAL PAIN Status: Acute (7) Renal cell carcinoma Code(s): C64.9 - MALIGNANT NEOPLASM OF UNSP KIDNEY, EXCEPT RENAL PELVIS Status : Acute (8) Small cell carcinoma Code(s): C80.1 - MALIGNANT (PRIMARY) NEOPLASM, UNSPECIFIED Status: Acute (9) Squamous cell carcinoma Code(s): [id number] - Status: Acute (10) Normocytic anemia Code(s): D64.9 - ANEMIA, UNSPECIFIED Status: Chronic - Plan Plan: Left proximal femoral shaft fracture - Dr. Mello - left intramedullary nail 4 days ago - Dr Hendrix - yesterday revised nail due to severe post operative internal rotation - Continue pts home pain meds, has Morphine available PRN - Will provide routine post operative PT prior to DC - CM and palliative consulted - pt requesting hospice upon discharge HFrEF - Echo / EF 50-55% - Strict I&Os, daily wt Stage 2 Sacral Ulcer - Wound care consulted Normocytic Anemia -likely 2/2 Chronic disease Renal Cell Carcinoma s/p Nephrectomy and Small Cell Lung Cancer and Squamous Cell Carcinoma - Plans to go on hospice care once discharged HTN - Continue home meds HLD - Continue home meds DVT PPx: lovenox GI PPx: none Code Status: DNR Dispo: Post op intramedullary nail, revision of procedure yesterday. Pending transition to hospice upon discharge. Initiate routine post op PT and cares. Addendum - Attending - Attending Attestation Date/Time: 11/30/19 9810 I personally evaluated the patient and discussed the management with Dr. العلي. I agree with the History, Examination, Assessment and Plan documented above with any addition or exceptions noted below. Patient stable, continue post op pain control and recs per Ortho. PT. Will dc home to hospice care once cleared by ortho.
[2019-11-30 06:37] LABS: Anion Gap 13 mmol/L (10-20); BUN (Urea Nitrogen) 8 mg/dL (8.4-25.7); Calc. Creatinine Clearance 119 mL/min (70-130); Calcium 8.4 mg/dL (7.8-10.44); Carbon Dioxide 27 mmol/L (23-31); Chloride 98 mmol/L (98-107); Estimated GFR-MDRD Greater than 90; Glucose 99 mg/dL (83-110); Potassium 4.3 mmol/L (3.5-5.1); Sodium 134 mmol/L (136-145)
[2019-11-30 06:51] LABS: Band 2 % (5-11); Eosinophils 1 % (0-10); Hemoglobin 7.6 g/dL (14.0-18.0); Hypochromia SLIGHT = 6-15 cells (100X) (0-5/hpf); Lymphocytes 6 % (21-51); MDiff Complete? YES; Mean Corpuscular HGB CONC 29.6 g/dL (32.0-36.0); Mean Corpuscular Hemoglobin 28.9 pg (27.0-31.0); Mean Corpuscular Volume 97.6 fL (78.0-98.0); Mean Platelet Volume 7.3 fL (7.4-10.4); Monocytes 9 % (0-10); Neutrophil 82 % (42-75); Platelet Count 317 thou/uL (130-400); Red Blood Cell (RBC) Count 2.64 mill/uL (4.70-6.10); White Blood Cell (WBC) Count 7.6 thou/uL (4.8-10.8)
[2019-11-30] MEDS: Pregabalin 75 MG CAP PO SCH (08:12)
[2019-11-30] MEDS: Enoxaparin Sodium 40 MG/0.4 ML SYRINGE SC SCH (08:12)
[2019-11-30] MEDS: Famotidine 20 MG TAB PO SCH (08:12)
[2019-11-30] MEDS: Multivitamin W/ Minerals 1 TAB PO SCH (08:12)
[2019-11-30] MEDS: azaTHIOprine 50 MG TAB PO SCH (08:12)
[2019-11-30] MEDS: Lactinex Tablet PO SCH (08:13)
[2019-11-30] MEDS: Carvedilol 25 MG TAB PO SCH ×2 (08:13→08:18)
[2019-11-30] MEDS: Spironolactone 25 MG TAB PO SCH ×2 (08:13→08:18)
[2019-11-30] MEDS: Aspirin 81 mg Enteric Coated Tablet PO SCH (08:13)
[2019-11-30 08:16] VITALS: BP 92/53
[2019-11-30] MEDS: Senokot S 8.6-50 MG TAB PO PRN (08:29)
[2019-11-30 08:32] VITALS: TEMP 98.9
--- NOTE | 2019-11-30 10:26 | PDOC.PALPN ---
Palliative Progress Note - Subjective Awake, alert, flat affect today. - Objective Vital Signs: Vital Signs - Most Recent Temp Pulse Resp BP Pulse Ox 98.9 F 91 22 H 92/53 L 92 L 11/30/19 08:14 11/30/19 08:14 11/30/19 08:14 11/30/19 08:14 11/30/19 08:20 - Physical Exam Constitutional: NAD HEENT: EOMI, moist MMs, sclera anicteric Respiratory: no wheezing, unlabored breathing Cardiovascular: RRR Gastrointestinal: soft, non-tender Genitourinary: continent Musculoskeletal: no cyanosis, no clubbing, pulses present Neurology: moves all 4 limbs, no focal deficits Skin: cap refill <2 seconds Psychiatric: A&O x 3, flat affect - Assessment (1) Palliative care encounter Code(s): Z51.5 - ENCOUNTER FOR PALLIATIVE CARE Current Visit: Yes Status: Acute (2) Left femoral shaft fracture Code(s): S72.302A - UNSP FRACTURE OF SHAFT OF LEFT FEMUR, INIT FOR CLOS FX Current Visit: Yes Status: Acute (3) Heart failure with reduced ejection fraction Code(s): I50.20 - UNSPECIFIED SYSTOLIC (CONGESTIVE) HEART FAILURE Current Visit: No Status: Acute (4) Metastasis to lung Code(s): C78.00 - SECONDARY MALIGNANT NEOPLASM OF UNSPECIFIED LUNG Current Visit: No Status: Acute (5) Renal cell carcinoma Code(s): C64.9 - MALIGNANT NEOPLASM OF UNSP KIDNEY, EXCEPT RENAL PELVIS Current Visit: No Status: Acute (6) Small cell carcinoma Code(s): C80.1 - MALIGNANT (PRIMARY) NEOPLASM, UNSPECIFIED Current Visit: No Status: Acute (7) Squamous cell carcinoma Code(s): [id number] - Current Visit: No Status: Acute - Plan Plan: Mr Oliveros is awake and alert. Goal of care is to transition to home setting with hospice care. Previously with [facility] home health, will transition to hospice. States he is currently pain free, voiding without complications, denies nausea. Mirian Condon RNtransmission maintenance supervisor to also communicate with [facility] for PT with hospice and relay goal of care to hospice. Will also call his spouse. Communicated with Residents, OOHDNAR on chart for signature CM Aware. [30] minutes spent on this encounter with >50% of the time in counseling and coordination of care. - ROS Constitutional: alert, weakness ENT: other (Denies congestion, difficulity swallowing) Respiratory: other (Negative for shortness of breath) Cardiology: other (Denies chest pain, palpitations) Gastrointestinal: other (Denies nausea, vomiting) Musculoskeletal: other (Denies pain at time of assessment)
--- NOTE | 2019-11-30 10:35 | PDOC.FMACP ---
Advance Care Planning - Problem (1) Palliative care encounter Status: Acute Code(s): Z51.5 - ENCOUNTER FOR PALLIATIVE CARE (2) Left femoral shaft fracture Status: Acute Code(s): S72.302A - UNSP FRACTURE OF SHAFT OF LEFT FEMUR, INIT FOR CLOS FX (3) Heart failure with reduced ejection fraction Status: Acute Code(s): I50.20 - UNSPECIFIED SYSTOLIC (CONGESTIVE) HEART FAILURE (4) Metastasis to lung Status: Acute Code(s): C78.00 - SECONDARY MALIGNANT NEOPLASM OF UNSPECIFIED LUNG (5) Renal cell carcinoma Status: Acute Code(s): C64.9 - MALIGNANT NEOPLASM OF UNSP KIDNEY, EXCEPT RENAL PELVIS (6) Small cell carcinoma Status: Acute Code(s): C80.1 - MALIGNANT (PRIMARY) NEOPLASM, UNSPECIFIED (7) Squamous cell carcinoma Status: Acute Code(s): [id number] - - Note Participants: patient Summary: Advanced Care Planning was discussed. The diagnosis, prognosis and goals of care were discussed. Appropriate forms and documentation to accomplish the goals of care were discussed. All questions were answered. The Palliative Care Team will be engaged to assist with completion of any outstanding forms that are needed. DNAR, OOHDNAR completed by Palliative Care team and awaiting signature from attending physician. Mr Oliveros states he desires no further aggressive measures including treatment and resuscitation. He desires to transition to the home setting with hospice and allow for a natural as health declines. Spouse supportive. Time Spent (mins): 20 (Conversation has unfolded over several occasions, including )
--- NOTE | 2019-12-01 06:27 | DIS ---
DATE OF ADMISSION: 11/25/2019 DATE OF DISCHARGE: 11/30/2019 ADMITTING ATTENDING: Walt Fregoso MD DISCHARGE ATTENDING: Walt Fregoso MD RESIDENT: Yan العلي DO CONSULTS: 1. Orthopedics, Dr. Apollo Mello and Dr. Luis Alfredo Hendrix MD. 2. Palliative care, SANDY Alfaro. PROCEDURES: Left intramedullary nail placed on 11/24, which was revised on 11/28. IMAGING: Femur x-ray, left, 11/2007, impression, acute traumatic displaced and angulated fracture of left proximal femoral shaft, possibly a pathologic fracture. PRIMARY DIAGNOSES: Left femoral shaft fracture, renal cell carcinoma, small cell carcinoma, squamous cell carcinoma, metastasis. SECONDARY DIAGNOSES: Hyperlipidemia, hyponatremia, heart failure with reduced ejection fraction. DISCHARGE MEDICATIONS: 1. Atorvastatin 10 mg p.m. 2. Amlodipine 10 mg p.m. 3. Lyrica 150 mg b.i.d. 4. Colazal 750 mg two tablets b.i.d. 5. Aspirin 81 mg daily. 6. Nexium 20 mg daily. 7. Spironolactone 25 mg daily. 8. B12 injections 1000 mcg every 28 days. 9. Carvedilol 25 mg b.i.d. 10. Lactobacillus acidophilus one cap daily. 11. Zofran 4 mg q.6 hours p.r.n. 12. Percocet q.4 hours p.r.n. 13. Fentanyl 25 mcg q.3 days. 14. Lomotil 2.5 mg/0.025 mg two tabs p.o. q.i.d. p.r.n. 15. Imuran 50 mg two tabs p.o. b.i.d. 16. Centrum Silver 1 tab daily. HISTORY OF PRESENT ILLNESS AND HOSPITAL COURSE: The patient is a 79-year-old male, who was recently discharged from the hospital following an admission for malignant pleural effusion and heart failure exacerbation. He presented to the ER due to a fall while transferring from his car on his way to the hospital for radiation treatment. The patient presented with obvious left upper leg deformity and was diagnosed with a displaced and angulated left femoral shaft fracture that was likely pathologic. The patient was brought back to the OR by Dr. Mello and had a left intramedullary nail placed. He was subsequently admitted by [facility] for pain management and chronic care management. Over the next couple days, it was found that patient had an internally rotated left lower extremity. Dr. Hendrix evaluated the patient and decided to bring him back to the OR for assessment under general anesthesia. While in the OR, they decided to adjust the nail and were able to get the foot back in anatomic alignment. Postoperatively, the patient was doing well and bearing weight with pain under control. Throughout his stay, discussions were had regarding discharge placement. After discussion with palliative care, patient, and his , it was determined the patient into home hospice upon discharge. The patient arranged hospice care with traditions to be resumed upon patient's discharge. At the time of discharge, the patient was continuing to do well and working with PT. DISCHARGE INSTRUCTIONS: 1. Location: Home with hospice. 2. Activity: As tolerated and per orthopedic limitations. 3. Diet: Regular. 4. Followup: PCP within 7 days, Orthopedics, Dr. Mello or Simeon as directed. Job ID: [id number]
== END 2019-11-30 16:20 | disposition hospice, home (50) | DRG 481 ==
LOC: ERS 11:19 → SDC 14:08 → ONC 17:29
PROVIDERS: ADMIT Orthopaedic Surgery; ATTEND Orthopaedic Surgery
PROC: 0QS936Z Reposition Left Femoral Shaft with Intramedullary Internal Fixation Device, Percutaneous Approach (ICD-10-PCS; principal; 2019-11-25)
PROC: 0QW Lower Bones, Revision (ICD-10-PCS; 2019-11-29)
DX: M84.552A Pathological fracture in neoplastic disease, left femur, initial encounter for fracture (principal); Z66 Do not resuscitate; Z51.5 Encounter for palliative care; E87.1 Hypo-osmolality and hyponatremia; I50.22 Chronic systolic (congestive) heart failure; T84.125A Displacement of internal fixation device of left femur, initial encounter; C78.00 Secondary malignant neoplasm of unspecified lung; C79.00 Secondary malignant neoplasm of unspecified kidney and renal pelvis; E78.5 Hyperlipidemia, unspecified; L89.152 Pressure ulcer of sacral region, stage 2; I11.0 Hypertensive heart disease with heart failure; D63.8 Anemia in other chronic diseases classified elsewhere; C80.1 Malignant (primary) neoplasm, unspecified; Y83.1 Surgical operation with implant of artificial internal device as the cause of abnormal reaction of the patient, or of later complication, without mention of misadventure at the time of the procedure; Z79.899 Other long term (current) drug therapy; Z79.82 Long term (current) use of aspirin; Z90.5 Acquired absence of kidney; Z85.828 Personal history of other malignant neoplasm of skin
CPT/HCPCS: 27502; 36415; 71045; 72170; 76000; 77336; 77412; 80048; 80053; 85025; 85610; 85730; 86850; 86900; 86901; 86922; 93005; 96365; 96375; C1713; C1769; J0690; J1100; J1650; J1885; J2001; J2270; J2405; J2550; J2704; J3010; J3420; J7500; J8499